=== PATIENT | male | born 1945 | race Hispanic/Latino ===

== ENCOUNTER 2020-10-05 03:11 | Inpatient (IN) | payer OTHER, MEDICARE ==
[~2020-10-05 03:11] MED LIST: HYDROmorphone 1 MG/1 ML INJ IV ONE; HYDROmorphone 1 MG/1 ML INJ ONE; ONDANSETRON 4 MG/2 ML INJ IV ONE; SODIUM CHLORIDE 0.9% 1000 ML 1,000 ML ONE
[2020-10-05] MEDS ORDERED: HYDROmorphone 1 MG/1 ML INJ IV ONE (03:52)
[2020-10-05] MEDS ORDERED: ONDANSETRON 4 MG/2 ML INJ IV ONE (03:53)
[2020-10-05] MEDS ORDERED: SODIUM CHLORIDE 0.9% 1000 ML 1,000 ML IV ONE (03:53)
[2020-10-05] MEDS ORDERED: HYDROmorphone 1 MG/1 ML INJ ONE (03:56)
--- NOTE | 2020-10-05 04:11 | Emergency Department Report ---
ED General Adult HPI - General Chief complaint: Abdominal Pain Stated complaint: Abdominal pain PUI?: No Source: patient, EMS ( EMS documentation not available at time of chart dictation ), RN notes reviewed Mode of arrival: Stretcher Limitations: Physical Limitation - History of Present Illness Initial comments: The patient is a 75-year-old gentleman. He is not known to myself previously. He denies a history of abdominal surgeries. Presents to the ER today with EMS with a complaint of nontraumatic sudden upper abdominal pain. It started after eating a chicken sandwich. The abdominal pain is subxiphoid, epigastric and the left upper quadrant. It radiates to the back. He denies headache, neck pain, chest pain, he is nauseous, he denies Covid symptomatology, he denies testicular pain and urinary symptoms. He has never had pain like this before. His pain is markedly improved with hydromorphone. -: Sudden Location: abdomen Radiation: back Quality: stabbing, aching Consistency: constant Improves with: medication Worsens with: movement - Related Data Home Medications Medication Instructions Recorded Confirmed Last Taken Abacavir 600 mg PO QDAY 10/05/20 10/05/20 10/03/20 10:00 Calcium 500-Vit D3 400 Tablet 500 mg PO QDAY 10/05/20 10/05/20 10/04/20 08:00 Cholecalciferol (Vitamin D3) 25 mcg PO QDAY 10/05/20 10/05/20 10/04/20 20:00 Cyanocobalamin [Vitamin B-12] 1,000 mcg PO DAILY 10/05/20 10/05/20 10/04/20 20:00 Diphenhydramine HCl [Complete 25 mg PO PRN 10/05/20 10/05/20 10/03/20 20:00 Allergy TAB] Dolutegravir [Tivicay] 50 mg PO QDAY 10/05/20 10/05/20 10/04/20 10:00 Dry Eye Relief Eye Drops 1 ml OS Q6HR 10/05/20 10/05/20 10/03/20 20:00 Finasteride 5 mg PO HS 10/05/20 10/05/20 10/04/20 20:00 Flomax 0.4 mg PO QDAY 10/05/20 10/05/20 10/03/20 20:00 Lamivudine 300 mg PO QDAY 10/05/20 10/05/20 10/03/20 10:00 Moxifloxacin 1 drop OU Q6HR 10/05/20 10/05/20 10/05/20 12:00 Ider-3 Fatty Acids/Fish Oil [Fish 1,000 mg PO QDAY 10/05/20 10/05/20 10/03/20 20:00 Oil] Primidone [Mysoline] 50 mg PO BID 10/05/20 10/05/20 10/03/20 20:00 Propranolol HCl [Inderal LA] 60 mg PO QDAY 10/05/20 10/05/20 10/03/20 Sertraline HCl 50 mg PO BID 10/05/20 10/05/20 10/03/20 glipiZIDE [Glucotrol] 10 mg PO HS 10/05/20 10/05/20 10/03/20 20:00 prednisoLONE ACETATE 1% 1 drop OS Q6HR 10/05/20 10/05/20 10/03/20 20:00 Allergies Allergy/AdvReac Type Severity Reaction Status Date / Time ibuprofen [From Motrin] AdvReac Unknown Verified 10/05/20 04:30 ED Review of Systems ROS: Stated complaint: Other details as noted in HPI Constitutional: malaise, weakness. denies: fever Eyes: denies: eye discharge ENT: denies: epistaxis Respiratory: denies: cough Cardiovascular: denies: chest pain Gastrointestinal: abdominal pain, nausea. denies: vomiting Genitourinary: denies: dysuria, testicular pain Musculoskeletal: back pain Neurological: weakness Psychiatric: anxiety Hematological/Lymphatic: denies: easy bleeding ED Past Medical Hx - Past Medical History Hx Diabetes: Yes Hx HIV: Yes - Surgical History Hx Pacemaker: No Additional Surgical History: cataract - Social History Smoking Status: Never Smoker Substance Use Type: None - Medications Home Medications: Home Medications Medication Instructions Recorded Confirmed Last Taken Type Abacavir 600 mg PO QDAY 10/05/20 10/05/20 10/03/20 10:00 History Calcium 500-Vit D3 400 Tablet 500 mg PO QDAY 10/05/20 10/05/20 10/04/20 08:00 History Cholecalciferol (Vitamin D3) 25 mcg PO QDAY 10/05/20 10/05/20 10/04/20 20:00 History Cyanocobalamin [Vitamin B-12] 1,000 mcg PO DAILY 10/05/20 10/05/20 10/04/20 20:00 History Diphenhydramine HCl [Complete 25 mg PO PRN 10/05/20 10/05/20 10/03/20 20:00 History Allergy TAB] Dolutegravir [Tivicay] 50 mg PO QDAY 10/05/20 10/05/20 10/04/20 10:00 History Dry Eye Relief Eye Drops 1 ml OS Q6HR 10/05/20 10/05/20 10/03/20 20:00 History Finasteride 5 mg PO HS 10/05/20 10/05/20 10/04/20 20:00 History Flomax 0.4 mg PO QDAY 10/05/20 10/05/20 10/03/20 20:00 History Lamivudine 300 mg PO QDAY 10/05/20 10/05/20 10/03/20 10:00 History Moxifloxacin 1 drop OU Q6HR 10/05/20 10/05/20 10/05/20 12:00 History Ider-3 Fatty Acids/Fish Oil [Fish 1,000 mg PO QDAY 10/05/20 10/05/20 10/03/20 20:00 History Oil] Primidone [Mysoline] 50 mg PO BID 10/05/20 10/05/20 10/03/20 20:00 History Propranolol HCl [Inderal LA] 60 mg PO QDAY 10/05/20 10/05/20 10/03/20 History Sertraline HCl 50 mg PO BID 10/05/20 10/05/20 10/03/20 History glipiZIDE [Glucotrol] 10 mg PO HS 10/05/20 10/05/20 10/03/20 20:00 History prednisoLONE ACETATE 1% 1 drop OS Q6HR 10/05/20 10/05/20 10/03/20 20:00 History ED Physical Exam - General Limitations: Physical Limitation General appearance: alert, anxious, in distress, obese - Head Head exam: Present: atraumatic, normocephalic - Eye Eye exam: Present: normal appearance, EOMI. Absent: nystagmus - ENT ENT exam: Present: normal exam, normal orophraynx, mucous membranes moist, normal external ear exam - Neck Neck exam: Present: normal inspection, full ROM. Absent: tenderness, meningismus - Respiratory Respiratory exam: Present: normal lung sounds bilaterally. Absent: respiratory distress, wheezes, rales, rhonchi, stridor, decreased breath sounds - Cardiovascular Cardiovascular Exam: Present: regular rate, normal rhythm, normal heart sounds. Absent: bradycardia, tachycardia, irregular rhythm, systolic murmur, diastolic murmur, rubs, gallop - GI/Abdominal GI/Abdominal exam: Present: soft, distended, tenderness, guarding. Absent: rebound, rigid, pulsatile mass - exam: Present: normal inspection External exam: Present: normal external exam, other (Chaperoned by nurse Ольга Schmidt) - Extremities Exam Extremities exam: Present: normal inspection, full ROM, other (2+ pulses noted in the bilateral upper and lower extremities. There is no palpable cord. negative Homans sign. Muscular compartments are soft. The pelvis is stable.). Absent: calf tenderness - Back Exam Back exam: Present: normal inspection. Absent: tenderness, CVA tenderness (R), CVA tenderness (L), paraspinal tenderness, vertebral tenderness - Neurological Exam Neurological exam: Present: alert, other (No facial droop. Tongue midline. Extraocular movements intact bilaterally. Facial sensation intact to light touch in V1, V2, V3 distribution bilaterally. 5 and a 5 strength in 4 extremities. Sensation intact to light touch in 4 extremities.) - Psychiatric Psychiatric exam: Present: anxious - Skin Skin exam: Present: warm, dry, intact, normal color. Absent: rash ED Course Vital Signs 10/05/20 10/05/20 10/05/20 03:37 04:36 04:46 Temperature 97.7 F Pulse Rate 84 60 67 Respiratory 20 16 17 Rate Blood Pressure 202/84 O2 Sat by Pulse 99 96 97 Oximetry 10/05/20 10/05/20 10/05/20 05:20 05:30 05:45 Temperature Pulse Rate 81 78 77 Respiratory 15 16 14 Rate Blood Pressure 176/73 176/73 176/73 O2 Sat by Pulse 98 95 94 Oximetry 10/05/20 10/05/20 10/05/20 06:01 06:11 06:21 Temperature Pulse Rate 82 85 83 Respiratory 13 14 15 Rate Blood Pressure 150/88 173/84 173/84 O2 Sat by Pulse 96 96 95 Oximetry - Consultations Consultation #1: 10/05/20 05:51 Discussed history, physical, pertinent laboratory studies, imaging studies and plan of care with general surgeon on-call, Dr. Rosetta Tellez. She is in agreement with the plan of care, and she will follow in consultation. Right upper quadrant ultrasound ordered. We will defer to inpatient team to follow this up. Elevated blood pressure is likely chronic. Does not appear to be acutely de compensated. He was given 5 mg of hydralazine by myself. Defer to inpatient team to further evaluate and manage. 10/06/20 00:23 ED Medical Decision Making - Lab Data Result diagrams: 10/05/20 02:06 Vital Signs 10/05/20 03:37 Temperature 97.7 F Pulse Rate 84 Respiratory 20 Rate Blood Pressure 202/84 O2 Sat by Pulse 99 Oximetry White count 8.2/hemoglobin 14.4/hematocrit 40.6/platelet count 130 Sodium 140/potassium 3.79/chloride 101.5/CO2 25/BUN 22/creatinine 1.2/glucose 23 5 Total bili 1.3, AST 112, ALT 46, lipase 3256 Lab Results 10/05/20 10/05/20 10/05/20 Range/Units 02:06 02:06 02:06 WBC 8.2 (4.5-11.0) K/mm3 RBC 4.19 (3.65-5.03) M/mm3 Hgb 14.4 (11.8-15.2) gm/dl Hct 40.6 (35.5-45.6) % MCV 97 H (84-94) fl MCH 34 H (28-32) pg MCHC 36 H (32-34) % RDW 13.3 (13.2-15.2) % Plt Count 130 L (140-440) K/mm3 Lymph % (Auto) 25.8 (13.4-35.0) % [place] % (Auto) 7.2 (0.0-7.3) % Eos % (Auto) 2.2 (0.0-4.3) % Baso % (Auto) 0.3 (0.0-1.8) % Lymph # (Auto) 2.1 (1.2-5.4) K/mm3 [place] # (Auto) 0.6 (0.0-0.8) K/mm3 Eos # (Auto) 0.2 (0.0-0.4) K/mm3 Baso # (Auto) 0.0 (0.0-0.1) K/mm3 Seg Neutrophils % 64.5 (40.0-70.0) % Seg Neutrophils # 5.3 (1.8-7.7) K/mm3 PT 14.1 (12.2-14.9) Sec. INR 1.04 (0.87-1.13) APTT 28.3 (24.2-36.6) Sec. Hemoglobin A1c (4-6) % Lactic Acid (0.7-2.0) mmol/L Total Bilirubin (0.1-1.2) mg/dL Direct Bilirubin (0-0.2) mg/dL Indirect Bilirubin mg/dL AST (5-40) units/L ALT (7-56) units/L Alkaline Phosphatase (35-129) units/L Total Protein (6.3-8.2) g/dL Albumin (3.9-5) g/dL Albumin/Globulin Ratio % Lipase (13-60) units/L Urine Color Yellow (Yellow) Urine Turbidity Clear (Clear) Urine pH 6.0 (5.0-7.0) Ur Specific [place] 1.009 (1.003-1.030) Urine Protein 30 mg/dl (Negative) mg/dL Urine Glucose (UA) 50 (Negative) mg/dL Urine Ketones Trace (Negative) mg/dL Urine Blood Small A (Negative) Urine Nitrite Negative (Negative) Urine Bilirubin Negative (Negative) Urine Urobilinogen < 2.0 (<2.0) mg/dL Ur Leukocyte Esterase Negative (Negative) Urine WBC (Auto) < 1.0 (0.0-6.0) /HPF Urine RBC (Auto) 1.0 (0.0-6.0) /HPF U Epithel Cells (Auto) < 1.0 (0-13.0) /HPF 10/05/20 10/05/20 10/05/20 Range/Units 11:58 11:58 11:58 WBC (4.5-11.0) K/mm3 RBC (3.65-5.03) M/mm3 Hgb (11.8-15.2) gm/dl Hct (35.5-45.6) % MCV (84-94) fl MCH (28-32) pg MCHC (32-34) % RDW (13.2-15.2) % Plt Count (140-440) K/mm3 Lymph % (Auto) (13.4-35.0) % [place] % (Auto) (0.0-7.3) % Eos % (Auto) (0.0-4.3) % Baso % (Auto) (0.0-1.8) % Lymph # (Auto) (1.2-5.4) K/mm3 [place] # (Auto) (0.0-0.8) K/mm3 Eos # (Auto) (0.0-0.4) K/mm3 Baso # (Auto) (0.0-0.1) K/mm3 Seg Neutrophils % (40.0-70.0) % Seg Neutrophils # (1.8-7.7) K/mm3 PT (12.2-14.9) Sec. INR (0.87-1.13) APTT (24.2-36.6) Sec. Hemoglobin A1c 6.7 H (4-6) % Lactic Acid 1.10 (0.7-2.0) mmol/L Total Bilirubin 3.10 H (0.1-1.2) mg/dL Direct Bilirubin 2.7 H (0-0.2) mg/dL Indirect Bilirubin 0.4 mg/dL AST 227 H (5-40) units/L ALT 140 H (7-56) units/L Alkaline Phosphatase 137 H (35-129) units/L Total Protein 7.3 (6.3-8.2) g/dL Albumin 4.4 (3.9-5) g/dL Albumin/Globulin Ratio 1.5 % Lipase (13-60) units/L Urine Color (Yellow) Urine Turbidity (Clear) Urine pH (5.0-7.0) Ur Specific [place] (1.003-1.030) Urine Protein (Negative) mg/dL Urine Glucose (UA) (Negative) mg/dL Urine Ketones (Negative) mg/dL Urine Blood (Negative) Urine Nitrite (Negative) Urine Bilirubin (Negative) Urine Urobilinogen (<2.0) mg/dL Ur Leukocyte Esterase (Negative) Urine WBC (Auto) (0.0-6.0) /HPF Urine RBC (Auto) (0.0-6.0) /HPF U Epithel Cells (Auto) (0-13.0) /HPF 10/05/20 Range/Units 11:58 WBC (4.5-11.0) K/mm3 RBC (3.65-5.03) M/mm3 Hgb (11.8-15.2) gm/dl Hct (35.5-45.6) % MCV (84-94) fl MCH (28-32) pg MCHC (32-34) % RDW (13.2-15.2) % Plt Count (140-440) K/mm3 Lymph % (Auto) (13.4-35.0) % [place] % (Auto) (0.0-7.3) % Eos % (Auto) (0.0-4.3) % Baso % (Auto) (0.0-1.8) % Lymph # (Auto) (1.2-5.4) K/mm3 [place] # (Auto) (0.0-0.8) K/mm3 Eos # (Auto) (0.0-0.4) K/mm3 Baso # (Auto) (0.0-0.1) K/mm3 Seg Neutrophils % (40.0-70.0) % Seg Neutrophils # (1.8-7.7) K/mm3 PT (12.2-14.9) Sec. INR (0.87-1.13) APTT (24.2-36.6) Sec. Hemoglobin A1c (4-6) % Lactic Acid (0.7-2.0) mmol/L Total Bilirubin (0.1-1.2) mg/dL Direct Bilirubin (0-0.2) mg/dL Indirect Bilirubin mg/dL AST (5-40) units/L ALT (7-56) units/L Alkaline Phosphatase (35-129) units/L Total Protein (6.3-8.2) g/dL Albumin (3.9-5) g/dL Albumin/Globulin Ratio % Lipase 2888 H (13-60) units/L Urine Color (Yellow) Urine Turbidity (Clear) Urine pH (5.0-7.0) Ur Specific [place] (1.003-1.030) Urine Protein (Negative) mg/dL Urine Glucose (UA) (Negative) mg/dL Urine Ketones (Negative) mg/dL Urine Blood (Negative) Urine Nitrite (Negative) Urine Bilirubin (Negative) Urine Urobilinogen (<2.0) mg/dL Ur Leukocyte Esterase (Negative) Urine WBC (Auto) (0.0-6.0) /HPF Urine RBC (Auto) (0.0-6.0) /HPF U Epithel Cells (Auto) (0-13.0) /HPF Vital Signs 10/05/20 10/05/20 10/05/20 03:37 04:36 04:46 Temperature 97.7 F Pulse Rate 84 60 67 Respiratory 20 16 17 Rate Blood Pressure 202/84 O2 Sat by Pulse 99 96 97 Oximetry 10/05/20 10/05/20 10/05/20 05:20 05:30 05:45 Temperature Pulse Rate 81 78 77 Respiratory 15 16 14 Rate Blood Pressure 176/73 176/73 176/73 O2 Sat by Pulse 98 95 94 Oximetry 10/05/20 10/05/20 10/05/20 06:01 06:11 06:21 Temperature Pulse Rate 82 85 83 Respiratory 13 14 15 Rate Blood Pressure 150/88 173/84 173/84 O2 Sat by Pulse 96 96 95 Oximetry - EKG Data 10/05/20 04:22 EKG interpreted at 02: 0 8 AM the EKG shows an atrial paced rate, 60 bpm, with good capture, left axis dev iation, incomplete right bundle branch block, QTC prolonged, no endorsement of chest pain, abnormal EKG, not a STEMI - Radiology Data Radiology results: report reviewed, image reviewed CHEST 1 VIEW INDICATION / CLINICAL INFORMATION: abd pain, distention, r/o free air. COMPARISON: None available. FINDINGS: SUPPORT DEVICES: None. HEART / MEDIASTINUM: No significant abnormality. LUNGS / PLEURA: No significant pulmonary or pleural abnormality. No pneumothorax. ADDITIONAL FINDINGS: No significant additional findings. IMPRESSION: 1. No acute findings. Signer Name: Celso Wilson MD Signed: 10/05/2020 1:31 AM Workstation Name: [id number] HISTORY: Patient complains of lower abdominal pain. COMPARISON: None. TECHNIQUE: CT images of the abdomen and pelvis were obtained following administration of intravenous contrast. All CT scans at this location are performed using CT dose reduction for ALARA by means of automated exposure control. CONTRAST: 100 ml of intravenous contrast administered. FINDINGS: Lungs/bones: Lung bases are clear Abdomen/pelvis: Liver, spleen, adrenal glands appear normal. There is mild inflammation of the pancreatic head and proximal body with small trace fluid. The gallbladder is distended with multiple gallstones urinary bladder appears normal. No bowel obstruction is seen. IMPRESSION: 1. Gallbladder is distended with cholelithiasis. Clinical correlation. 2. Mild inflammation surrounding the pancreatic body and head with trace fluid. Findings could represent acute pancreatitis however clinical correlation with pancreatic enzymes and history. Signer Name: Celso Wilson MD Signed: 10/05/2020 4:17 AM Workstation Name: [id number] - Medical Decision Making Differential diagnosis, including but not limited to: Pancreatitis, colitis, diverticulitis, obstruction, perforated viscus Assessment and plan: 75-year-old gentleman with diffuse abdominal pain after eating heavy and spicy food, lipase of 3200, history and physical suggestive at this time of pancreatitis. He feels improved after hydromorphone. CT scan of the abdomen pelvis is pending at this time. Hospital physician, Dr. Erica Faulkner to admit for acute pancreatitis Critical care attestation.: If time is entered above; I have spent that time in minutes in the direct care of this critically ill patient, excluding procedure time. ED Disposition Clinical Impression: Acute pancreatitis, Acute abdominal pain, Cholelithiasis Disposition: OP ADMIT IP TO THIS HOSP Is pt being admited?: Yes Does the pt Need Aspirin: No Condition: Serious
--- NOTE | 2020-10-05 05:10 | History and Physical Report ---
History of Present Illness Date of examination: 10/05/20 Date of admission: 10/05/20 Chief complaint: abdominal pain History of present illness: The patient is a 75-year-old gentleman. He is not known to myself previously. He denies a history of abdominal surgeries. Presents to the ER today with EMS with a complaint of nontraumatic sudden upper abdominal pain. It started after eating a chicken sandwich. The abdominal pain is subxiphoid, epigastric and the left upper quadrant. It radiates to the back. He denies headache, neck pain, chest pain, he is nauseous, he denies Covid symptomatology, he denies testicular pain and urinary symptoms. He has never had pain like this before. His pain is markedly improved with hydromorphone. ED work-up sodium 140 potassium 3.9 creatinine 1.3 lipase 3256, troponin [address] of the abdomen done with follow-up with results. Patient seen in the ED at bedside patient alert oriented x3. Patient reported abdominal pain bilateral upper quadrant pain that radiates to the lower right and left abdomen. Pain level at time of assessment 7to-8/10. Reviewed lab values and vital signs. Lipase is elevated.. Past History Past Medical History: diabetes, HIV/AIDS, hyperlipidemia Past Surgical History: Other (Hip surgery) Social history: lives with family Family history: no significant family history Medications and Allergies Allergies Allergy/AdvReac Type Severity Reaction Status Date / Time ibuprofen [From Motrin] AdvReac Unknown Verified 10/05/20 04:30 Review of Systems Ears, nose, mouth and throat: no epistaxis Gastrointestinal: abdominal pain, heartburn, indigestion Musculoskeletal: no neck stiffness Integumentary: no rash, no pruritis Neurological: no seizures Psychiatric: no suicidal ideation Hematologic/Lymphatic: no easy bruising, no easy bleeding Exam - Constitutional Vitals: Temp Pulse Resp BP Pulse Ox 97.7 F 84 20 202/84 99 10/05/20 03:37 10/05/20 03:37 10/05/20 03:37 10/05/20 03:37 10/05/20 03:37 General appearance: Present: mild distress, well-nourished - EENT Eyes: Present: PERRL ENT: hearing intact, clear oral mucosa - Neck Neck: Present: supple, normal ROM - Respiratory Respiratory effort: normal Respiratory: bilateral: CTA - Cardiovascular Heart rate: 84 Heart Sounds: Present: S1 & S2. Absent: rub, click - Extremities Extremities: pulses symmetrical, No edema Peripheral Pulses: within normal limits - Abdominal General gastrointestinal: Present: soft, non-tender, non-distended, normal bowel sounds Male genitourinary: Present: normal - Integumentary Integumentary: Present: clear, warm, dry - Musculoskeletal Musculoskeletal: gait normal, strength equal bilaterally - Psychiatric Psychiatric: appropriate mood/affect, intact judgment & insight - Neurologic Neurologic: CNII-XII intact, moves all extremities - Allied Health Allied health notes reviewed: nursing Assessment and Plan - Patient Problems (1) Acute pancreatitis Current Visit: Yes Status: Acute Plan to address problem: CMP done shows elevated lipase 3256. Continue IV hydration, pain management GI consulted (2) Acute abdominal pain Current Visit: Yes Status: Acute Plan to address problem: Secondary to acute pancreatitis Pain management CT of the abdomen/pelvis (3) History of HIV infection Current Visit: Yes Status: Acute Plan to address problem: will resume antiviral Discussed the significant of medication compliance (4) DVT prophylaxis Current Visit: Yes Status: Acute Plan to address problem: Subcutaneous Lovenox
[2020-10-05] MEDS ORDERED: MAGNESIUM HYDROXIDE (MOM) ORAL LIQD UDC PO PRN (05:13)
[2020-10-05] MEDS ORDERED: METOCLOPRAMIDE 10 MG/2 ML INJ IV PRN (05:13)
[2020-10-05] MEDS ORDERED: ALUM-MAG HYDROXIDE-SIMETHICONE 200-200-20MG/5ML ORAL LIQD 30 ML PO PRN (05:13)
[2020-10-05] MEDS ORDERED: traMADol 50 MG TAB PO PRN (05:16)
[2020-10-05] MEDS ORDERED: MORPHINE 10 MG/1 ML INJ IV PRN (05:16)
--- NOTE | 2020-10-05 05:21 | Cat Scan Report ---
CT ABDOMEN AND PELVIS WITH CONTRAST HISTORY: Patient complains of lower abdominal pain. COMPARISON: None. TECHNIQUE: CT images of the abdomen and pelvis were obtained following administration of intravenous contrast. All CT scans at this location are performed using CT dose reduction for ALARA by means of automated exposure control. CONTRAST: 100 ml of intravenous contrast administered. FINDINGS: Lungs/bones: Lung bases are clear Abdomen/pelvis: Liver, spleen, adrenal glands appear normal. There is mild inflammation of the pancr eatic head and proximal body with small trace fluid. The gallbladder is distended with multiple galls tones urinary bladder appears normal. No bowel obstruction is seen. IMPRESSION: 1. Gallbladder is distended with cholelithiasis. Clinical correlation. 2. Mild inflammation surrounding the pancreatic body and head with trace fluid. Findings could repres ent acute pancreatitis however clinical correlation with pancreatic enzymes and history. Signer Name: Celso Wilson MD Signed: 10/05/2020 5:17 AM Workstation Name: [id number]
[2020-10-05] MEDS ORDERED: MORPHINE 2 MG/1 ML INJ ONE (05:25)
[2020-10-05] MEDS ORDERED: ERTAPENEM 1 GM in SODIUM CHLORIDE 0.9% 50 ML IV ONE (05:35)
[2020-10-05] MEDS ORDERED: hydrALAZINE 20 MG/1 ML INJ ONE (05:46)
--- NOTE | 2020-10-05 08:52 | Progress Note ---
Assessment and Plan Assessment and plan: Acute pancreatitis Abdominal pain History of HIV 10/05/2020. On admission, lipase noted to be 3256. Continue IV fluid hydration, pain management and GI consultation pending. CT scan reveals distended gallbladder with cholelithiasis. Mild inflammation surrounding the pancreatic body and head with trace fluid. Await surgery evaluation for gallstone pancreatitis. History Interval history: No new issues overnight Hospitalist Physical - Constitutional Vitals: Temp Pulse Resp BP Pulse Ox 97.7 F 82 13 150/88 96 10/05/20 03:37 10/05/20 06:01 10/05/20 06:01 10/05/20 06:01 10/05/20 06:01 General appearance: Present: no acute distress, well-nourished - EENT Eyes: Present: PERRL, EOM intact ENT: hearing intact, clear oral mucosa, dentition normal - Neck Neck: Present: supple, normal ROM - Respiratory Respiratory effort: normal Respiratory: bilateral: CTA - Cardiovascular Rhythm: regular Heart Sounds: Present: S1 & S2. Absent: gallop, rub - Extremities Extremities: no ischemia, No edema, Full ROM - Abdominal General gastrointestinal: soft, non-tender, non-distended, normal bowel sounds - Integumentary Integumentary: Present: clear, warm, dry - Neurologic Neurologic: CNII-XII intact, moves all extremities Active Medications - Current Medications Current Medications: Generic Name Dose Route Start Last Admin Trade Name Freq PRN Reason Stop Dose Admin Acetaminophen 650 mg 10/05/20 05:13 Acetaminophen 325 Mg Tab PO Q4H PRN Pain MILD(1-3)/Fever >100.5/PEÑA Al Hydrox/Mg Hydrox/Simethicone 30 ml 10/05/20 05:13 Alum-Mag Hydroxide-Simethicone [phone]/5ml Oral Liqd 30 Ml PO Q4H PRN Indigestion Enoxaparin Sodium 40 mg 10/05/20 10:00 Enoxaparin 40 Mg/0.4 Ml Inj SUB-Q QDAY@1000 ISIS Protocol Hydralazine HCl 10 mg 10/05/20 05:42 Hydralazine 20 Mg/1 Ml Inj IV Q4H PRN Hypertension Dextrose/Sodium Chloride 1,000 mls @ 75 mls/hr 10/05/20 06:00 D5ns IV DIRECT ISIS Magnesium Hydroxide 30 ml 10/05/20 05:13 Magnesium Hydroxide (Mom) Oral Liqd Udc PO Q4H PRN Constipation Metoclopramide HCl 10 mg 10/05/20 05:13 Metoclopramide 10 Mg/2 Ml Inj IV Q6H PRN Nausea And Vomiting Morphine Sulfate 2 mg 10/05/20 08:00 Morphine 2 Mg/1 Ml Inj IV Q4H PRN Pain , Severe (7-10) Ondansetron HCl 4 mg 10/05/20 05:13 Ondansetron 4 Mg/2 Ml Inj IV Q8H PRN Nausea And Vomiting Sodium Chloride 10 ml 10/05/20 05:13 Sodium Chloride 0.9% 10 Ml Flush Syringe IV PRN PRN LINE FLUSH Tramadol HCl 50 mg 10/05/20 05:16 Tramadol 50 Mg Tab PO Q6H PRN Pain, Moderate (4-6) Trazodone HCl 50 mg 10/05/20 22:00 Trazodone 50 Mg Tab PO QHS PRN Insomnia
--- NOTE | 2020-10-05 08:55 | Ultrasound Report ---
ULTRASOUND ABDOMEN, LIMITED (RIGHT UPPER QUADRANT) INDICATION: Distended gallbladder, pancreatitis. COMPARISON: None available. FINDINGS: Pancreas: Not well visualized. Liver: Liver is heterogeneous in echotexture. No focal hepatic lesions are seen. The liver size is no rmal. Gallbladder: Gallbladder is distended and filled with sludge. There is slight thickening of the gallb ladder wall which measures 4 mm. Gallstones seen on CT scan is not identified on this ultrasound exam . Bile ducts: Common bile duct is slightly dilated Common Bile Duct measures 7 mm. Free fluid: None. Additional Findings: None. IMPRESSION: 1. Gallbladder is distended and sludge-filled. The gallbladder wall is slightly thickened. The appear ance raises concern for cholecystitis but is not definitive. There is a small gallstone noted on the patient's CT scan which is not visualized on this ultrasound exam. There is slight dilatation of the common bile duct. Signer Name: Puneet Gallegos MD Signed: 10/05/2020 8:50 AM Workstation Name: [id number]
--- NOTE | 2020-10-05 09:27 | XRay Report ---
CHEST 1 VIEW INDICATION / CLINICAL INFORMATION: abd pain, distention, r/o free air. COMPARISON: None available. FINDINGS: SUPPORT DEVICES: None. HEART / MEDIASTINUM: No significant abnormality. LUNGS / PLEURA: No significant pulmonary or pleural abnormality. No pneumothorax. ADDITIONAL FINDINGS: No significant additional findings. IMPRESSION: 1. No acute findings. Signer Name: Celso Wilson MD Signed: 10/05/2020 2:31 AM Workstation Name: [id number]
[2020-10-05] MEDS: ONDANSETRON 4 MG/2 ML INJ IV PRN (09:32)
[2020-10-05] MEDS: ENOXAPARIN 40 MG/0.4 ML INJ SUB-Q SCH (09:32)
[2020-10-05] MEDS: D5W/0.9% NACL 1,000 ML IV SCH ×2 (09:32→16:13)
[2020-10-05 11:32] LABS: Color,Urine Yellow (Yellow)
[2020-10-05 11:33] LABS: Bilirubin,Urine Negative (Negative); Blood,Urine Small (Negative)
[2020-10-05 11:34] LABS: Urobilinogen,Urine < 2.0 mg/dL (<2.0); WBC,Urine < 1.0 /HPF (0.0-6.0)
[2020-10-05 11:35] LABS: Hematocrit 40.6 % (35.5-45.6); Hemoglobin 14.4 gm/dl (11.8-15.2); Mean Corpuscular HGB Conc 36 % (32-34); Mean Corpuscular Volume 97 fl (84-94); Platelet Count 130 K/mm3 (140-440); Red Blood Count 4.19 M/mm3 (3.65-5.03); Red Cell Distribution Width 13.3 % (13.2-15.2)
[2020-10-05 11:36] LABS: Basophils % (Auto) 0.3 % (0.0-1.8); Eosinophils # (Auto) 0.2 K/mm3 (0.0-0.4); Eosinophils % (Auto) 2.2 % (0.0-4.3); Lymphocytes # (Auto) 2.1 K/mm3 (1.2-5.4); Lymphocytes % (Auto) 25.8 % (13.4-35.0); Monocytes # (Auto) 0.6 K/mm3 (0.0-0.8); Monocytes % (Auto) 7.2 % (0.0-7.3)
[2020-10-05 11:38] LABS: INR 1.04 (0.87-1.13); Partial Thromboplastin Time 28.3 Sec. (24.2-36.6)
--- NOTE | 2020-10-05 11:49 | Gastroenterology Consultation ---
History of Present Illness - Reason for Consult Consult date: 10/05/20 pancreatitis Requesting physician: ROSEMARIE JEROME - History of Present Illness This is a 75 yo male admitted overnight for abdominal pain x 1 day. Reports having new onset epigastric pain radiating to the sides associated with nausea/vomiting and chills yesterday. No recent weight loss or diarrhea. Reports feeling constipated. This morning, his abdominal pain has improved. No alcohol use. He thinks he has had colonoscopy many years ago with polyp removed. Per chart review, ED work-up sodium 140 potassium 3.9 creatinine 1.3 lipase 3256, troponin 0 0.010. but these labs are not available in the EMR. Medication list reviewed. Past History Past Medical History: diabetes, HIV/AIDS, hyperlipidemia Past Surgical History: Other (Hip surgery) Social history: lives with family Family history: no significant family history Medications and Allergies Allergies Allergy/AdvReac Type Severity Reaction Status Date / Time ibuprofen [From Motrin] AdvReac Unknown Verified 10/05/20 04:30 Active Meds: Active Medications Acetaminophen (Acetaminophen 325 Mg Tab) 650 mg PO Q4H PRN PRN Reason: Pain MILD(1-3)/Fever >100.5/PEÑA Al Hydrox/Mg Hydrox/Simethicone (Alum-Mag Hydroxide-Simethicone [id number]/5ml Oral Liqd 30 Ml) 30 ml PO Q4H PRN PRN Reason: Indigestion Enoxaparin Sodium (Enoxaparin 40 Mg/0.4 Ml Inj) 40 mg SUB-Q QDAY@1000 ISIS; Protocol Last Admin: 10/05/20 09:32 Dose: 40 mg Documented by: Hydralazine HCl (Hydralazine 20 Mg/1 Ml Inj) 10 mg IV Q4H PRN PRN Reason: Hypertension Dextrose/Sodium Chloride (D5ns) 1,000 mls @ 150 mls/hr IV DIRECT ISIS Last Admin: 10/05/20 09:32 Dose: 150 mls/hr Documented by: Magnesium Hydroxide (Magnesium Hydroxide (Mom) Oral Liqd Udc) 30 ml PO Q4H PRN PRN Reason: Constipation Metoclopramide HCl (Metoclopramide 10 Mg/2 Ml Inj) 10 mg IV Q6H PRN PRN Reason: Nausea And Vomiting Morphine Sulfate (Morphine 2 Mg/1 Ml Inj) 2 mg IV Q4H PRN PRN Reason: Pain , Severe (7-10) Ondansetron HCl (Ondansetron 4 Mg/2 Ml Inj) 4 mg IV Q8H PRN PRN Reason: Nausea And Vomiting Last Admin: 10/05/20 09:32 Dose: 4 mg Documented by: Sodium Chloride (Sodium Chloride 0.9% 10 Ml Flush Syringe) 10 ml IV PRN PRN PRN Reason: LINE FLUSH Tramadol HCl (Tramadol 50 Mg Tab) 50 mg PO Q6H PRN PRN Reason: Pain, Moderate (4-6) Trazodone HCl (Trazodone 50 Mg Tab) 50 mg PO QHS PRN PRN Reason: Insomnia Review of Systems - Review of Systems All systems: negative Constitutional: fever, chills, no weight loss, no weight gain Ears, Nose, Throat: no decreased hearing Cardiovascular: no chest pain Gastrointestinal: abdominal pain, nausea, vomiting, constipation, no diarrhea, no hematemesis, no coffee ground emesis, no BRBPR, no melena, no hematochezia Neurological: weakness Psychiatric: no anxiety Hematologic/Lymphatic: no easy bruising Allergic/Immunologic: no wheezing Exam - Constitutional Vital Signs: Temp Pulse Resp BP Pulse Ox 97.7 F 82 13 150/88 96 10/05/20 03:37 10/05/20 06:01 10/05/20 06:01 10/05/20 06:01 10/05/20 06:01 General appearance: no acute distress - EENT Eyes: EOM intact ENT: hearing intact - Respiratory Respiratory effort: normal - Cardiovascular Rhythm: regular Heart Sounds: Present: S1 & S2 - Gastrointestinal General gastrointestinal: Present: soft, tender, non-distended - Integumentary Integumentary: Present: clear, warm. Absent: jaundice - Neurologic Neurological: alert and oriented x3 - Labs CBC & Chem 7: 10/05/20 02:06 Lab Results: Laboratory Results - last 24 hr 10/05/20 10/05/20 10/05/20 02:06 02:06 02:06 WBC 8.2 RBC 4.19 Hgb 14.4 Hct 40.6 MCV 97 H MCH 34 H MCHC 36 H RDW 13.3 Plt Count 130 L Lymph % (Auto) 25.8 [place] % (Auto) 7.2 Eos % (Auto) 2.2 Baso % (Auto) 0.3 Lymph # (Auto) 2.1 [place] # (Auto) 0.6 Eos # (Auto) 0.2 Baso # (Auto) 0.0 Seg Neutrophils % 64.5 Seg Neutrophils # 5.3 PT 14.1 INR 1.04 APTT 28.3 Urine Color Yellow Urine Turbidity Clear Urine pH 6.0 Ur Specific [place] 1.009 Urine Protein 30 mg/dl Urine Glucose (UA) 50 Urine Ketones Trace Urine Blood Small A Urine Nitrite Negative Urine Bilirubin Negative Urine Urobilinogen < 2.0 Ur Leukocyte Esterase Negative Urine WBC (Auto) < 1.0 Urine RBC (Auto) 1.0 U Epithel Cells (Auto) < 1.0 Assessment and Plan # Gallstone pancreatitis - epigastric pain x 1 day - Ct showing cholelithiasis and pancreatitis - US showing mild prominent bile duct - labs not available at this time. LFT pending. Rec - medical management for pancreatitis with IVF and pain control - NPO - will follow up on LFTs to evaluate for any concern for common bile duct stones. May need MRCP if elevated LFTs - will follow - surgery consulted - Patient Problems (1) Acute pancreatitis Current Visit: Yes Status: Acute
--- NOTE | 2020-10-05 13:17 | Consultation ---
History of Present Illness Consult date: 10/05/20 Reason for consult: abdominal pain Chief complaint: Abdominal pain - History of present illness History of present illness: 75-year-old male with a past medical history of sick sinus syndrome with pacemak er who presented to the emergency room with severe sharp epigastric abdominal pain. He has never experienced pain like this in the past. He states the pain started suddenly after eating a chicken salad sandwich and then gradually got worse. The pain then radiated down to the rest of his abdomen. The only thing that helped the pain was 2 doses of pain medication in the emergency room. The patient states he experienced nausea and vomiting. No fevers or chills. He has been having bowel movements and passing flatus. He initially thought he had food poisoning however the pain became too severe to bear. Past History Past Medical History: diabetes, HIV/AIDS, hyperlipidemia, other (Sick sinus syndrome) Past Surgical History: Other (Hip surgery, pacemaker) Social history: lives with family Family history: no significant family history Medications and Allergies Allergies Allergy/AdvReac Type Severity Reaction Status Date / Time ibuprofen [From Motrin] AdvReac Unknown Verified 10/05/20 04:30 Home Medications Medication Instructions Recorded Confirmed Last Taken Type Abacavir 600 mg PO QDAY 10/05/20 10/05/20 10/03/20 10:00 History Calcium 500-Vit D3 400 Tablet 500 mg PO QDAY 10/05/20 10/05/20 10/04/20 08:00 History Cholecalciferol (Vitamin D3) 25 mcg PO QDAY 10/05/20 10/05/20 10/04/20 20:00 History Cyanocobalamin [Vitamin B-12] 1,000 mcg PO DAILY 10/05/20 10/05/20 10/04/20 20:00 History Diphenhydramine HCl [Complete 25 mg PO PRN 10/05/20 10/05/20 10/03/20 20:00 History Allergy TAB] Dolutegravir [Tivicay] 50 mg PO QDAY 10/05/20 10/05/20 10/04/20 10:00 History Dry Eye Relief Eye Drops 1 ml OS Q6HR 10/05/20 10/05/20 10/03/20 20:00 History Finasteride 5 mg PO HS 10/05/20 10/05/20 10/04/20 20:00 History Flomax 0.4 mg PO QDAY 10/05/20 10/05/20 10/03/20 20:00 History Lamivudine 300 mg PO QDAY 10/05/20 10/05/20 10/03/20 10:00 History Moxifloxacin 1 drop OU Q6HR 10/05/20 10/05/20 10/05/20 12:00 History [place]-3 Fatty Acids/Fish Oil [Fish 1,000 mg PO QDAY 10/05/20 10/05/20 10/03/20 20:00 History Oil] Primidone [Mysoline] 50 mg PO BID 10/05/20 10/05/20 10/03/20 20:00 History Propranolol HCl [Inderal LA] 60 mg PO QDAY 10/05/20 10/05/20 10/03/20 History Sertraline HCl 50 mg PO BID 10/05/20 10/05/20 10/03/20 History glipiZIDE [Glucotrol] 10 mg PO HS 10/05/20 10/05/20 10/03/20 20:00 History prednisoLONE ACETATE 1% 1 drop OS Q6HR 10/05/20 10/05/20 10/03/20 20:00 History Active Meds: Active Medications Acetaminophen (Acetaminophen 325 Mg Tab) 650 mg PO Q4H PRN PRN Reason: Pain MILD(1-3)/Fever >100.5/PEÑA Al Hydrox/Mg Hydrox/Simethicone (Alum-Mag Hydroxide-Simethicone [id number]/5ml Oral Liqd 30 Ml) 30 ml PO Q4H PRN PRN Reason: Indigestion Enoxaparin Sodium (Enoxaparin 40 Mg/0.4 Ml Inj) 40 mg SUB-Q QDAY@1000 ISIS; Protocol Last Admin: 10/05/20 09:32 Dose: 40 mg Documented by: Hydralazine HCl (Hydralazine 20 Mg/1 Ml Inj) 10 mg IV Q4H PRN PRN Reason: Hypertension Dextrose/Sodium Chloride (D5ns) 1,000 mls @ 150 mls/hr IV DIRECT ISIS Last Admin: 10/05/20 09:32 Dose: 150 mls/hr Documented by: Magnesium Hydroxide (Magnesium Hydroxide (Mom) Oral Liqd Udc) 30 ml PO Q4H PRN PRN Reason: Constipation Metoclopramide HCl (Metoclopramide 10 Mg/2 Ml Inj) 10 mg IV Q6H PRN PRN Reason: Nausea And Vomiting Morphine Sulfate (Morphine 2 Mg/1 Ml Inj) 2 mg IV Q4H PRN PRN Reason: Pain , Severe (7-10) Ondansetron HCl (Ondansetron 4 Mg/2 Ml Inj) 4 mg IV Q8H PRN PRN Reason: Nausea And Vomiting Last Admin: 10/05/20 09:32 Dose: 4 mg Documented by: Sodium Chloride (Sodium Chloride 0.9% 10 Ml Flush Syringe) 10 ml IV PRN PRN PRN Reason: LINE FLUSH Tramadol HCl (Tramadol 50 Mg Tab) 50 mg PO Q6H PRN PRN Reason: Pain, Moderate (4-6) Trazodone HCl (Trazodone 50 Mg Tab) 50 mg PO QHS PRN PRN Reason: Insomnia Review of Systems All systems: negative (10 point ROS performed and negative except for that listed in HPI) Exam Vital Signs Temp Pulse Resp BP Pulse Ox 97.7 F 84 20 202/84 99 10/05/20 03:37 10/05/20 03:37 10/05/20 03:37 10/05/20 03:37 10/05/20 03:37 Narrative exam: Gen.: Awake, alert, oriented x3. No apparent distress ENT: Trachea midline. No lymphadenopathy. No scleral icterus or conjunctival pallor CV: S1, S2 present. Left-sided pacemaker Respiratory: No audible wheezes Abdomen: Soft, mildly distended, epigastric and right-sided tenderness to palpation. No rebound, rigidity, guarding Extremities: No clubbing, cyanosis, edema Results - Labs 10/05/20 02:06 Abnormal lab results 10/05/20 10/05/20 Range/Units 02:06 02:06 MCV 97 H (84-94) fl MCH 34 H (28-32) pg MCHC 36 H (32-34) % Plt Count 130 L (140-440) K/mm3 Urine Blood Small A (Negative) - Imaging CT scan - abdomen: report reviewed, image reviewed CT scan - pelvis: report reviewed, image reviewed US - abdomen: report reviewed, image reviewed Assessment and Plan 75 yo M with gallstone pancreatitis Plan: 1. NPO 2. IVF 3. prn pain and nausea control 4. DVT and GI ppx 5. GI consulted 6. daily CMP and lipase 7. MRCP if LFTs trending up 8. Cards consult for preop risk assessment 9. Recommend cholecystectomy this admission. I described the pathophysiology of gallstone pancreatitis to the patient along with indication for cholecystectomy. He understands. Will proceed to the OR when cardiology evaluation is complete and lipase trends down to an acceptable level. Thank you for this consultation. Please call with any questions or concerns. Evaluation and treatment of this patient was during the time of the national and state emergency arising from COVID19 coronavirus pandemic. Treatment and procedures performed meet the current and available best practice and guidelines for patient during the COVID pandemic.
[2020-10-05 14:06] LABS: Albumin 4.4 g/dL (3.9-5); Bilirubin,Direct 2.7 mg/dL (0-0.2)
[2020-10-05] MEDS: MORPHINE 2 MG/1 ML INJ IV PRN (16:12)
[2020-10-05] MEDS ORDERED: traZODone 50 MG TAB PO PRN (22:00)
[2020-10-06] MEDS: D5W/0.9% NACL 1,000 ML IV SCH ×2 (01:24→08:44)
[2020-10-06] MEDS: MORPHINE 2 MG/1 ML INJ IV PRN ×2 (01:40→10:11)
[2020-10-06 05:13] LABS: Basophils % (Auto) 0.3 % (0.0-1.8); Eosinophils # (Auto) 0.1 K/mm3 (0.0-0.4); Eosinophils % (Auto) 0.7 % (0.0-4.3); Hematocrit 36.5 % (35.5-45.6); Hemoglobin 12.8 gm/dl (11.8-15.2); Lymphocytes # (Auto) 1.5 K/mm3 (1.2-5.4); Lymphocytes % (Auto) 21.3 % (13.4-35.0); Mean Corpuscular HGB Conc 35 % (32-34); Mean Corpuscular Volume 98 fl (84-94); Monocytes # (Auto) 0.5 K/mm3 (0.0-0.8); Monocytes % (Auto) 6.8 % (0.0-7.3); Platelet Count 115 K/mm3 (140-440); Red Blood Count 3.73 M/mm3 (3.65-5.03); Red Cell Distribution Width 13.8 % (13.2-15.2)
[2020-10-06 05:28] LABS: Alanine Aminotransferase 237 units/L (7-56); Albumin 3.3 g/dL (3.9-5); BUN/Creatinine Ratio 11; Bilirubin,Direct 4.1 mg/dL (0-0.2); Blood Urea Nitrogen 12 mg/dL (9-20); Calcium 7.7 mg/dL (8.4-10.2); Hemolysis Index 7
--- NOTE | 2020-10-06 08:19 | Progress Note ---
Assessment and Plan Assessment and plan: Acute pancreatitis Abdominal pain Sick sinus syndrome s/p pacemaker placement History of HIV 10/05/2020. On admission, lipase noted to be 3256. Continue IV fluid hydration, pain management and GI consultation pending. CT scan reveals distended gallbladder with cholelithiasis. Mild inflammation surrounding the pancreatic body and head with trace fluid. Await surgery evaluation for gallstone smalls creatitis. 10/06/2020. Continue n.p.o. status per surgery recommendations. Lipase improved to 998. LFTs slightly more elevated. Await GI evaluation. Consider MRCP. Cholecystectomy per surgery recommendations. Cardiology preop risk assessment. History Interval history: No new issues overnight Hospitalist Physical - Constitutional Vitals: Temp Pulse Resp BP Pulse Ox 98.9 F 69 20 145/62 95 10/06/20 07:15 10/06/20 07:15 10/06/20 07:15 10/06/20 07:15 10/06/20 07:15 General appearance: Present: no acute distress, well-nourished - EENT Eyes: Present: PERRL, EOM intact ENT: hearing intact, clear oral mucosa, dentition normal - Neck Neck: Present: supple, normal ROM - Respiratory Respiratory effort: normal Respiratory: bilateral: CTA - Cardiovascular Rhythm: regular Heart Sounds: Present: S1 & S2. Absent: gallop, rub - Extremities Extremities: no ischemia, No edema, Full ROM - Abdominal General gastrointestinal: soft, non-tender, non-distended, normal bowel sounds - Integumentary Integumentary: Present: clear, warm, dry - Neurologic Neurologic: CNII-XII intact, moves all extremities Results - Labs CBC & Chem 7: 10/06/20 04:23 10/06/20 04:23 Labs: Laboratory Last Values WBC 7.2 K/mm3 (4.5-11.0) 10/06/20 04:23 RBC 3.73 M/mm3 (3.65-5.03) 10/06/20 04:23 Hgb 12.8 gm/dl (11.8-15.2) 10/06/20 04:23 Hct 36.5 % (35.5-45.6) 10/06/20 04:23 MCV 98 fl (84-94) H 10/06/20 04:23 MCH 34 pg (28-32) H 10/06/20 04:23 MCHC 35 % (32-34) H 10/06/20 04:23 RDW 13.8 % (13.2-15.2) 10/06/20 04:23 Plt Count 115 K/mm3 (140-440) L 10/06/20 04:23 Lymph % (Auto) 21.3 % (13.4-35.0) 10/06/20 04:23 [place] % (Auto) 6.8 % (0.0-7.3) 10/06/20 04:23 Eos % (Auto) 0.7 % (0.0-4.3) 10/06/20 04:23 Baso % (Auto) 0.3 % (0.0-1.8) 10/06/20 04:23 Lymph # (Auto) 1.5 K/mm3 (1.2-5.4) 10/06/20 04:23 [place] # (Auto) 0.5 K/mm3 (0.0-0.8) 10/06/20 04:23 Eos # (Auto) 0.1 K/mm3 (0.0-0.4) 10/06/20 04:23 Baso # (Auto) 0.0 K/mm3 (0.0-0.1) 10/06/20 04:23 Seg Neutrophils % 70.9 % (40.0-70.0) H 10/06/20 04:23 Seg Neutrophils # 5.1 K/mm3 (1.8-7.7) 10/06/20 04:23 PT 14.1 Sec. (12.2-14.9) 10/05/20 02:06 INR 1.04 (0.87-1.13) 10/05/20 02:06 APTT 28.3 Sec. (24.2-36.6) 10/05/20 02:06 Sodium 142 mmol/L (137-145) 10/06/20 04:23 Potassium 3.6 mmol/L (3.6-5.0) 10/06/20 04:23 Chloride 107.3 mmol/L (98-107) H 10/06/20 04:23 Carbon Dioxide 26 mmol/L (22-30) 10/06/20 04:23 Anion Gap 12 mmol/L 10/06/20 04:23 BUN 12 mg/dL (9-20) 10/06/20 04:23 Creatinine 1.1 mg/dL (0.8-1.3) 10/06/20 04:23 Estimated GFR > 60 ml/min 10/06/20 04:23 BUN/Creatinine Ratio 11 % 10/06/20 04:23 Glucose 235 mg/dL (75-100) H 10/06/20 04:23 POC Glucose 283 mg/dL (70-105) H 10/06/20 07:16 Hemoglobin A1c 6.7 % (4-6) H 10/05/20 11:58 Lactic Acid 1.10 mmol/L (0.7-2.0) 10/05/20 11:58 Calcium 7.7 mg/dL (8.4-10.2) L 10/06/20 04:23 Total Bilirubin 4.40 mg/dL (0.1-1.2) H 10/06/20 04:23 Direct Bilirubin 4.1 mg/dL (0-0.2) H 10/06/20 04:23 Indirect Bilirubin 0.4 mg/dL 10/05/20 11:58 AST 245 units/L (5-40) H 10/06/20 04:23 ALT 237 units/L (7-56) H 10/06/20 04:23 Alkaline Phosphatase 135 units/L (35-129) H 10/06/20 04:23 Total Protein 5.9 g/dL (6.3-8.2) L 10/06/20 04:23 Albumin 3.3 g/dL (3.9-5) L 10/06/20 04:23 Albumin/Globulin Ratio 1.3 % 10/06/20 04:23 Lipase 998 units/L (13-60) H 10/06/20 04:23 Urine Color Yellow (Yellow) 10/05/20 02:06 Urine Turbidity Clear (Clear) 10/05/20 02:06 Urine pH 6.0 (5.0-7.0) 10/05/20 02:06 Ur Specific [place] 1.009 (1.003-1.030) 10/05/20 02:06 Urine Protein 30 mg/dl mg/dL (Negative) 10/05/20 02:06 Urine Glucose (UA) 50 mg/dL (Negative) 10/05/20 02:06 Urine Ketones Trace mg/dL (Negative) 10/05/20 02:06 Urine Blood Small (Negative) A 10/05/20 02:06 Urine Nitrite Negative (Negative) 10/05/20 02:06 Urine Bilirubin Negative (Negative) 10/05/20 02:06 Urine Urobilinogen < 2.0 mg/dL (<2.0) 10/05/20 02:06 Ur Leukocyte Esterase Negative (Negative) 10/05/20 02:06 Urine WBC (Auto) < 1.0 /HPF (0.0-6.0) 10/05/20 02:06 Urine RBC (Auto) 1.0 /HPF (0.0-6.0) 10/05/20 02:06 U Epithel Cells (Auto) < 1.0 /HPF (0-13.0) 10/05/20 02:06 Microbiology: Microbiology 10/05/20 11:58 Peripheral/Venous Blood Culture - Preliminary Culture in Progress [place]/IV: Voiding Method Urinal Active Medications - Current Medications Current Medications: Generic Name Dose Route Start Last Admin Trade Name Freq PRN Reason Stop Dose Admin Acetaminophen 650 mg 10/05/20 05:13 Acetaminophen 325 Mg Tab PO Q4H PRN Pain MILD(1-3)/Fever >100.5/PEÑA Al Hydrox/Mg Hydrox/Simethicone 30 ml 10/05/20 05:13 Alum-Mag Hydroxide-Simethicone [id number]/5ml Oral Liqd 30 Ml PO Q4H PRN Indigestion Enoxaparin Sodium 40 mg 10/05/20 10:00 10/05/20 09:32 Enoxaparin 40 Mg/0.4 Ml Inj SUB-Q 40 mg QDAY@1000 ISIS Administration Protocol Hydralazine HCl 10 mg 10/05/20 05:42 Hydralazine 20 Mg/1 Ml Inj IV Q4H PRN Hypertension Dextrose/Sodium Chloride 1,000 mls @ 150 mls/hr 10/05/20 06:00 10/06/20 01:24 D5ns IV 150 mls/hr DIRECT ISIS Administration Magnesium Hydroxide 30 ml 10/05/20 05:13 Magnesium Hydroxide (Mom) Oral Liqd Udc PO Q4H PRN Constipation Metoclopramide HCl 10 mg 10/05/20 05:13 10/05/20 16:12 Metoclopramide 10 Mg/2 Ml Inj IV 10 mg Q6H PRN Administration Nausea And Vomiting Morphine Sulfate 2 mg 10/05/20 08:00 10/06/20 01:40 Morphine 2 Mg/1 Ml Inj IV 2 mg Q4H PRN Administration Pain , Severe (7-10) Ondansetron HCl 4 mg 10/05/20 05:13 10/05/20 09:32 Ondansetron 4 Mg/2 Ml Inj IV 4 mg Q8H PRN Administration Nausea And Vomiting Sodium Chloride 10 ml 10/05/20 05:13 Sodium Chloride 0.9% 10 Ml Flush Syringe IV PRN PRN LINE FLUSH Tramadol HCl 50 mg 10/05/20 05:16 Tramadol 50 Mg Tab PO Q6H PRN Pain, Moderate (4-6) Trazodone HCl 50 mg 10/05/20 22:00 Trazodone 50 Mg Tab PO QHS PRN Insomnia
--- NOTE | 2020-10-06 09:21 | Consultation ---
History of Present Illness Consult date: 10/06/20 Requesting physician: ROSEMARIE JEROME Consult reason: pre op evaluation History of present illness: Pt is a 75-year-old male, previously unknown to our practice, who presented with complaints of severe, sudden epigastric pain radiating to his back. Associated with nausea. He was found to have gallstone pancreatitis and is awaiting cholecystectomy. Cardiology has been consulted to provide pre-op risk stratification. Pt denies chest pain, SOB, palpitations, dizziness, lightheadedness, syncope, edema, or any additional cardiac complaints. He has a known hx of CHB s/p PPM [facility] Pt reports he had his PPM interrogated 1-2 weeks ago, which revealed normal device function and approximately 4 years battery life remaining. ECG reveals dual-paced rhythm, no ischemic changes. No acute findings on CXR. Past History Past Medical History: diabetes, HIV/AIDS, hypertension, other (CHB) Past Surgical History: Other (pacemaker) Social history: lives with family Family history: no significant family history Medications and Allergies Allergies Allergy/AdvReac Type Severity Reaction Status Date / Time ibuprofen [From Motrin] AdvReac Unknown Verified 10/05/20 04:30 Home Medications Medication Instructions Recorded Confirmed Last Taken Type Abacavir 600 mg PO QDAY 10/05/20 10/05/20 10/03/20 10:00 History Calcium 500-Vit D3 400 Tablet 500 mg PO QDAY 10/05/20 10/05/20 10/04/20 08:00 History Cholecalciferol (Vitamin D3) 25 mcg PO QDAY 10/05/20 10/05/20 10/04/20 20:00 History Cyanocobalamin [Vitamin B-12] 1,000 mcg PO DAILY 10/05/20 10/05/20 10/04/20 20:00 History Diphenhydramine HCl [Complete 25 mg PO PRN 10/05/20 10/05/20 10/03/20 20:00 History Allergy TAB] Dolutegravir [Tivicay] 50 mg PO QDAY 10/05/20 10/05/20 10/04/20 10:00 History Dry Eye Relief Eye Drops 1 ml OS Q6HR 10/05/20 10/05/20 10/03/20 20:00 History Finasteride 5 mg PO HS 0610/05/20 10/04/20 20:00 History Flomax 0.4 mg PO QDAY 10/05/20 10/05/20 10/03/20 20:00 History Lamivudine 300 mg PO QDAY 10/05/20 10/05/20 10/03/20 10:00 History Moxifloxacin 1 drop OU Q6HR 10/05/20 10/05/20 10/05/20 12:00 History [place]-3 Fatty Acids/Fish Oil [Fish 1,000 mg PO QDAY 10/05/20 10/05/20 10/03/20 20:00 History Oil] Primidone [Mysoline] 50 mg PO BID 10/05/20 10/05/20 10/03/20 20:00 History Propranolol HCl [Inderal LA] 60 mg PO QDAY 10/05/20 10/05/20 10/03/20 History Sertraline HCl 50 mg PO BID 10/05/20 10/05/20 10/03/20 History glipiZIDE [Glucotrol] 10 mg PO HS 10/05/20 10/05/20 10/03/20 20:00 History prednisoLONE ACETATE 1% 1 drop OS Q6HR 10/05/20 10/05/20 10/03/20 20:00 History Active Meds: Active Medications Acetaminophen (Acetaminophen 325 Mg Tab) 650 mg PO Q4H PRN PRN Reason: Pain MILD(1-3)/Fever >100.5/PEÑA Al Hydrox/Mg Hydrox/Simethicone (Alum-Mag Hydroxide-Simethicone [phone]/5ml Oral Liqd 30 Ml) 30 ml PO Q4H PRN PRN Reason: Indigestion Enoxaparin Sodium (Enoxaparin 40 Mg/0.4 Ml Inj) 40 mg SUB-Q QDAY@1000 ISIS; Protocol Last Admin: 10/05/20 09:32 Dose: 40 mg Documented by: Hydralazine HCl (Hydralazine 20 Mg/1 Ml Inj) 10 mg IV Q4H PRN PRN Reason: Hypertension Dextrose/Sodium Chloride (D5ns) 1,000 mls @ 150 mls/hr IV DIRECT ISIS Last Admin: 10/06/20 08:44 Dose: 150 mls/hr Documented by: Insulin Human Regular (Insulin Regular, Human 100 Units/1 Ml) 0 units SUB-Q ACHS ISIS; Protocol Magnesium Hydroxide (Magnesium Hydroxide (Mom) Oral Liqd Udc) 30 ml PO Q4H PRN PRN Reason: Constipation Metoclopramide HCl (Metoclopramide 10 Mg/2 Ml Inj) 10 mg IV Q6H PRN PRN Reason: Nausea And Vomiting Last Admin: 10/05/20 16:12 Dose: 10 mg Documented by: Morphine Sulfate (Morphine 2 Mg/1 Ml Inj) 2 mg IV Q4H PRN PRN Reason: Pain , Severe (7-10) Last Admin: 10/06/20 01:40 Dose: 2 mg Documented by: Ondansetron HCl (Ondansetron 4 Mg/2 Ml Inj) 4 mg IV Q8H PRN PRN Reason: Nausea And Vomiting Last Admin: 10/05/20 09:32 Dose: 4 mg Documented by: Sodium Chloride (Sodium Chloride 0.9% 10 Ml Flush Syringe) 10 ml IV PRN PRN PRN Reason: LINE FLUSH Tramadol HCl (Tramadol 50 Mg Tab) 50 mg PO Q6H PRN PRN Reason: Pain, Moderate (4-6) Trazodone HCl (Trazodone 50 Mg Tab) 50 mg PO QHS PRN PRN Reason: Insomnia Review of Systems Constitutional: no fever, no chills Ears, nose, mouth and throat: no nasal congestion, no sore throat Cardiovascular: no chest pain, no orthopnea, no palpitations, no edema, no syncope, no lightheadedness, no shortness of breath, no dyspnea on exertion, no paroxysmal nocturnal dyspnea, no claudication Respiratory: no cough, no shortness of breath, no dyspnea on exertion Gastrointestinal: abdominal pain, nausea, no vomiting, no diarrhea, no constipation Genitourinary Male: no dysuria, no flank pain Musculoskeletal: no neck stiffness, no neck pain, no myalgias Integumentary: no rash, no wounds Neurological: no head injury, no paralysis, no weakness, no parathesias, no numbness, no tingling, no seizures, no syncope, no vertigo, no headaches Endocrine: no cold intolerance, no heat intolerance Hematologic/Lymphatic: no easy bruising, no easy bleeding Allergic/Immunologic: no anaphylaxis Physical Examination Last Vital Signs Temp 100.8 F H 10/06/20 11:30 Pulse 89 10/06/20 11:30 Resp 19 10/06/20 11:30 BP 123/81 10/06/20 11:30 Pulse Ox 99 10/06/20 11:30 General appearance: no acute distress HEENT: Positive: EOMI, Normocephaly, Mucus Membranes Moist Neck: Positive: neck supple, trachea midline. Negative: JVD/HJR Cardiac: Positive: Reg Rate and Rhythm, S1/S2 Lungs: Positive: clear to auscultation Neuro: Positive: Grossly Intact Abdomen: Positive: Tender Skin: Negative: Rash Musculoskeletal: No Pain Extremities: Present: upper extr. pulses, lower extr. pulses, warm. Absent: edema Results 10/06/20 04:23 10/06/20 04:23 Cardiac Enzymes 10/05/20 10/06/20 Range/Units 11:58 04:23 AST 227 H 245 H (5-40) units/L Coagulation 10/05/20 Range/Units 02:06 PT 14.1 (12.2-14.9) Sec. INR 1.04 (0.87-1.13) APTT 28.3 (24.2-36.6) Sec. CBC 10/05/20 10/06/20 Range/Units 02:06 04:23 WBC 8.2 7.2 (4.5-11.0) K/mm3 RBC 4.19 3.73 (3.65-5.03) M/mm3 Hgb 14.4 12.8 (11.8-15.2) gm/dl Hct 40.6 36.5 (35.5-45.6) % Plt Count 130 L 115 L (140-440) K/mm3 Lymph # (Auto) 2.1 1.5 (1.2-5.4) K/mm3 [place] # (Auto) 0.6 0.5 (0.0-0.8) K/mm3 Eos # (Auto) 0.2 0.1 (0.0-0.4) K/mm3 Baso # (Auto) 0.0 0.0 (0.0-0.1) K/mm3 Comprehensive Metabolic Panel 10/05/20 10/06/20 Range/Units 11:58 04:23 Sodium 142 (137-145) mmol/L Potassium 3.6 (3.6-5.0) mmol/L Chloride 107.3 H (98-107) mmol/L Carbon Dioxide 26 (22-30) mmol/L BUN 12 (9-20) mg/dL Creatinine 1.1 (0.8-1.3) mg/dL Glucose 235 H (75-100) mg/dL Calcium 7.7 L (8.4-10.2) mg/dL Direct Bilirubin 2.7 H 4.1 H (0-0.2) mg/dL Indirect Bilirubin 0.4 mg/dL AST 227 H 245 H (5-40) units/L ALT 140 H 237 H (7-56) units/L Alkaline Phosphatase 137 H 135 H (35-129) units/L Total Protein 7.3 5.9 L (6.3-8.2) g/dL Albumin 4.4 3.3 L (3.9-5) g/dL - Imaging and Cardiology Echo: pending, other (06/2014 - EF 60%, mildly dilated LA, moderate MR, dilated IVC, moderate diastolic dysfxn) EKG: report reviewed, image reviewed - EKG Interpretation EKG: no acute changes EKG interpretations - Telemetry EKG Rhythm: Sinus Rhythm - EKG Sinus rhythms and dysrhythmias: sinus rhythm Pacemaker: normal AV synchronous pac Assessment and Plan Echo preliminarily reveals EF ~ 53%, no significant findings. Await detailed report. Pt is low-risk from a cardiac standpoint and stable to proceed with ERCP in AM. RCRI Class is II (1 point, 6.0% risk of MACE within 30 days). Pt seen in conjunction with Dr. Erica Navarro, who agrees with the assessment and plan of care. - Patient Problems (1) Gallstone pancreatitis Current Visit: Yes Status: Acute (2) Cardiac pacemaker in situ Current Visit: Yes Status: Chronic (3) History of complete heart block Current Visit: Yes Status: Chronic (4) Hypertension Current Visit: Yes Status: Chronic Qualifiers: Hypertension type: essential hypertension Qualified Code(s): I10 - Essential (primary) hypertension (5) DM2 (diabetes mellitus, type 2) Current Visit: Yes Status: Chronic (6) HIV infection Current Visit: Yes Status: Chronic (7) Essential tremor Current Visit: Yes Status: Chronic
[2020-10-06] MEDS: ENOXAPARIN 40 MG/0.4 ML INJ SUB-Q SCH (10:07)
[2020-10-06] MEDS: INSULIN REGULAR, HUMAN 100 UNITS/1 ML SUB-Q SCH ×3 (11:46→21:33)
[2020-10-06] MEDS: ACETAMINOPHEN 325 MG TAB PO PRN (11:50)
--- NOTE | 2020-10-06 12:49 | Gastroenterology Progress Note ---
Assessment and Plan # Gallstone pancreatitis - epigastric pain x 1 day - Ct showing cholelithiasis and pancreatitis - US showing mild prominent bile duct - LFTs elevated with Tbili, ALT, and Alk phos trending up today. - MRCP ordered but cannot be done due to pacemaker. - surgery consulted. Rec - medical management for pancreatitis with IVF and pain control - NPO MN - will plan for ERCP tomorrow tentatively. - monitor CMP - hold anticoagulation. - discussed with surgery, Dr. Tellez. - Patient Problems (1) Acute pancreatitis Current Visit: Yes Status: Acute Subjective Date of service: 10/06/20 Interval history: Patient reports abdominal pain improving. No appetite. No nausea/vomiting. Objective - Constitutional Vitals: Temp Pulse Resp BP Pulse Ox 100.8 F H 89 19 123/81 99 10/06/20 11:30 10/06/20 11:30 10/06/20 11:30 10/06/20 11:30 10/06/20 11:30 General appearance: no acute distress - EENT Eyes: EOM intact ENT: hearing intact - Respiratory Respiratory effort: normal - Cardiovascular Rhythm: regular Heart Sounds: Present: S1 & S2 - Gastrointestinal General gastrointestinal: Present: soft, tender, non-distended, normal bowel sounds - Neurologic Neurological: alert and oriented x3 - Psychiatric Psychiatric: appropriate mood/affect - Labs CBC & Chem 7: 10/06/20 04:23 10/06/20 04:23 Labs: Laboratory Results - last 24 hr 10/05/20 10/05/20 10/05/20 11:58 11:58 11:58 WBC RBC Hgb Hct MCV MCH MCHC RDW Plt Count Lymph % (Auto) [place] % (Auto) Eos % (Auto) Baso % (Auto) Lymph # (Auto) [place] # (Auto) Eos # (Auto) Baso # (Auto) Seg Neutrophils % Seg Neutrophils # Sodium Potassium Chloride Carbon Dioxide Anion Gap BUN Creatinine Estimated GFR BUN/Creatinine Ratio Glucose POC Glucose Hemoglobin A1c 6.7 H Lactic Acid 1.10 Calcium Total Bilirubin 3.10 H Direct Bilirubin 2.7 H Indirect Bilirubin 0.4 AST 227 H ALT 140 H Alkaline Phosphatase 137 H Total Protein 7.3 Albumin 4.4 Albumin/Globulin Ratio 1.5 Lipase 10/05/20 10/05/20 10/06/20 11:58 17:23 04:23 WBC 7.2 RBC 3.73 Hgb 12.8 Hct 36.5 MCV 98 H MCH 34 H MCHC 35 H RDW 13.8 Plt Count 115 L Lymph % (Auto) 21.3 [place] % (Auto) 6.8 Eos % (Auto) 0.7 Baso % (Auto) 0.3 Lymph # (Auto) 1.5 [place] # (Auto) 0.5 Eos # (Auto) 0.1 Baso # (Auto) 0.0 Seg Neutrophils % 70.9 H Seg Neutrophils # 5.1 Sodium Potassium Chloride Carbon Dioxide Anion Gap BUN Creatinine Estimated GFR BUN/Creatinine Ratio Glucose POC Glucose 236 H Hemoglobin A1c Lactic Acid Calcium Total Bilirubin Direct Bilirubin Indirect Bilirubin AST ALT Alkaline Phosphatase Total Protein Albumin Albumin/Globulin Ratio Lipase 2888 H 10/06/20 10/06/20 10/06/20 04:23 07:16 11:00 WBC RBC Hgb Hct MCV MCH MCHC RDW Plt Count Lymph % (Auto) [place] % (Auto) Eos % (Auto) Baso % (Auto) Lymph # (Auto) [place] # (Auto) Eos # (Auto) Baso # (Auto) Seg Neutrophils % Seg Neutrophils # Sodium 142 Potassium 3.6 Chloride 107.3 H Carbon Dioxide 26 Anion Gap 12 BUN 12 Creatinine 1.1 Estimated GFR > 60 BUN/Creatinine Ratio 11 Glucose 235 H POC Glucose 283 H 268 H Hemoglobin A1c Lactic Acid Calcium 7.7 L Total Bilirubin 4.40 H Direct Bilirubin 4.1 H Indirect Bilirubin AST 245 H ALT 237 H Alkaline Phosphatase 135 H Total Protein 5.9 L Albumin 3.3 L Albumin/Globulin Ratio 1.3 Lipase 998 H
--- NOTE | 2020-10-06 13:56 | Progress Note ---
Assessment and Plan 75 yo M with gallstone pancreatitis Pt condition improved today. Unable to have MRI d/t PPM. Plan: 1. May start clear liquids, n.p.o. past midnight tonight 2. IVF 3. prn pain and nausea control 4. DVT and GI ppx 5. start IV abx -Zosyn 6. daily CMP and lipase 7. GI on board - d/w Dr. Santacruz Bilirubin trending up - recommend ERCP prior to CCY. ERCP planned for tomorrow. 8. Cards consult for preop risk assessment 9. Recommend cholecystectomy this admission. Will proceed to the OR when cardiology evaluation is completed and following ERCP. discussed plan with patient in detail and he is agreeable. Thank you. Please call with any questions or concerns. Evaluation and treatment of this patient was during the time of the national and state emergency arising from COVID19 coronavirus pandemic. Treatment and procedures performed meet the current and available best practice and guidelines for patient during the COVID pandemic. Subjective Date of service: 10/06/20 Narrative: Patient seen and examined. T-max of 100.8 this afternoon. He states he feels much better. Now he feels a heaviness in his epigastrium but his pain is completely resolved. No nausea or vomiting. Objective Vital Signs - 12hr 10/06/20 10/06/20 10/06/20 02:00 04:00 04:13 Temperature 99.2 F Pulse Rate 74 74 Pulse Rate [ Left Radial] Pulse Rate [ Right Radial] Respiratory 18 18 Rate Blood Pressure 157/77 Blood Pressure [Left] O2 Sat by Pulse 93 Oximetry 10/06/20 10/06/20 10/06/20 07:15 10:00 11:30 Temperature 98.9 F 100.8 F H Pulse Rate 69 89 89 Pulse Rate [ 69 Left Radial] Pulse Rate [ 69 Right Radial] Respiratory 20 17 19 Rate Blood Pressure 145/62 Blood Pressure 123/81 [Left] O2 Sat by Pulse 95 99 Oximetry - General physical appearance Narrative Exam: Gen.: Awake, alert, oriented x3. No apparent distress ENT: Trachea midline. No lymphadenopathy. No scleral icterus or conjunctival pallor CV: S1, S2 present Respiratory: No audible wheezes Abdomen: Soft, nondistended, nontender. No rebound, rigidity, guarding Extremities: No clubbing, cyanosis, edema - Labs 10/06/20 04:23 10/06/20 04:23 Diabetes panel 10/05/20 10/05/20 10/06/20 Range/Units 11:58 11:58 04:23 Sodium 142 (137-145) mmol/L Potassium 3.6 (3.6-5.0) mmol/L Chloride 107.3 H (98-107) mmol/L Carbon Dioxide 26 (22-30) mmol/L BUN 12 (9-20) mg/dL Creatinine 1.1 (0.8-1.3) mg/dL Glucose 235 H (75-100) mg/dL Hemoglobin A1c 6.7 H (4-6) % Calcium 7.7 L (8.4-10.2) mg/dL AST 227 H 245 H (5-40) units/L ALT 140 H 237 H (7-56) units/L Alkaline Phosphatase 137 H 135 H (35-129) units/L Total Protein 7.3 5.9 L (6.3-8.2) g/dL Albumin 4.4 3.3 L (3.9-5) g/dL Calcium panel 10/05/20 10/06/20 Range/Units 11:58 04:23 Calcium 7.7 L (8.4-10.2) mg/dL Albumin 4.4 3.3 L (3.9-5) g/dL Pituitary panel 10/06/20 Range/Units 04:23 Sodium 142 (137-145) mmol/L Potassium 3.6 (3.6-5.0) mmol/L Chloride 107.3 H (98-107) mmol/L Carbon Dioxide 26 (22-30) mmol/L BUN 12 (9-20) mg/dL Creatinine 1.1 (0.8-1.3) mg/dL Glucose 235 H (75-100) mg/dL Calcium 7.7 L (8.4-10.2) mg/dL Adrenal panel 10/05/20 10/06/20 Range/Units 11:58 04:23 Sodium 142 (137-145) mmol/L Potassium 3.6 (3.6-5.0) mmol/L Chloride 107.3 H (98-107) mmol/L Carbon Dioxide 26 (22-30) mmol/L BUN 12 (9-20) mg/dL Creatinine 1.1 (0.8-1.3) mg/dL Glucose 235 H (75-100) mg/dL Calcium 7.7 L (8.4-10.2) mg/dL Total Bilirubin 3.10 H 4.40 H (0.1-1.2) mg/dL AST 227 H 245 H (5-40) units/L ALT 140 H 237 H (7-56) units/L Alkaline Phosphatase 137 H 135 H (35-129) units/L Total Protein 7.3 5.9 L (6.3-8.2) g/dL Albumin 4.4 3.3 L (3.9-5) g/dL
[2020-10-06] MEDS: PIPERACIL/TAZOBACTA 4.5/NS 100 4.5 GM/100 ML VIAL IV SCH ×2 (15:55→21:33)
[2020-10-06] MEDS ORDERED: D5W/0.9% NACL 1,000 ML IV SCH (18:00)
[2020-10-06] MEDS: hydrALAZINE 20 MG/1 ML INJ IV PRN (18:35)
[2020-10-07 05:31] LABS: Basophils # (Auto) 0.1 K/mm3 (0.0-0.1); Basophils % (Auto) 1.1 % (0.0-1.8); Eosinophils % (Auto) 0.5 % (0.0-4.3); Hematocrit 35.6 % (35.5-45.6); Hemoglobin 12.8 gm/dl (11.8-15.2); Lymphocytes # (Auto) 1.3 K/mm3 (1.2-5.4); Lymphocytes % (Auto) 14.9 % (13.4-35.0); Mean Corpuscular HGB Conc 36 % (32-34); Mean Corpuscular Volume 97 fl (84-94); Monocytes # (Auto) 0.5 K/mm3 (0.0-0.8); Monocytes % (Auto) 6.3 % (0.0-7.3); Platelet Count 103 K/mm3 (140-440); Red Blood Count 3.66 M/mm3 (3.65-5.03); Red Cell Distribution Width 13.5 % (13.2-15.2)
[2020-10-07] MEDS: PIPERACIL/TAZOBACTA 4.5/NS 100 4.5 GM/100 ML VIAL IV SCH ×3 (05:31→21:58)
[2020-10-07 05:49] LABS: Alanine Aminotransferase 196 units/L (7-56); Albumin 3.3 g/dL (3.9-5); BUN/Creatinine Ratio 10; Blood Urea Nitrogen 9 mg/dL (9-20); Calcium 8.3 mg/dL (8.4-10.2); Hemolysis Index 7
[2020-10-07] MEDS ORDERED: SODIUM CHLORIDE 0.9% 1000 ML 1,000 ML IV SCH (07:00)
[2020-10-07] MEDS: INSULIN REGULAR, HUMAN 100 UNITS/1 ML SUB-Q SCH ×4 (07:51→23:00)
--- NOTE | 2020-10-07 08:08 | Anesthesia Consultation ---
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 Pancreatis and Cholelithiasis) - Endocrine Hx Renal Disease: No Hx Liver Disease: No Hx Non-Insulin Dependent Diabetes: Yes Hx Thyroid Disease: No (Blood Gucose 210 this am @0800) - Hematic Hx Anemia: No - Other Systems Hx Alcohol Use: No Hx Obesity: No - Additional Comments Anesthesia Medical History Comments: Hx. emergence delirium
--- NOTE | 2020-10-07 08:11 | Anesthesia Day of Surgery ---
Anesthesia Day of Surgery - Day of Surgery Patient Examined: Yes Patient H&P Reviewed: Yes Patient is NPO: Yes Beta Blockers: No Cardiac Clearance: No Pulmonary Clearance: No
[2020-10-07] MEDS ORDERED: SODIUM CHLORIDE 0.9% 100 ML ONE (08:12)
[2020-10-07] MEDS ORDERED: LIDOCAINE MPF (2%) 20 MG/1 ML VIAL 5 ML ONE (08:17)
[2020-10-07] MEDS ORDERED: ONDANSETRON 4 MG/2 ML INJ ONE (08:17)
[2020-10-07] MEDS ORDERED: propofoL 200 MG/20 ML VIAL IV ONE ×3 (08:17→09:01)
[2020-10-07] MEDS ORDERED: HYDROmorphone 1 MG/1 ML INJ ONE (08:17)
[2020-10-07] MEDS ORDERED: GLUCAGON (HUMAN RECOMBINANT) 1 MG/ML INJ IV ONE (08:57)
--- NOTE | 2020-10-07 08:59 | Progress Note ---
Assessment and Plan Assessment and plan: Acute pancreatitis Abdominal pain Sick sinus syndrome s/p pacemaker placement History of HIV 10/05/2020. On admission, lipase noted to be 3256. Continue IV fluid hydration, pain management and GI consultation pending. CT scan reveals distended gallbladder with cholelithiasis. Mild inflammation surrounding the pancreatic body and head with trace fluid. Await surgery evaluation for gallstone smalls creatitis. 10/06/2020. Continue n.p.o. status per surgery recommendations. Lipase improved to 998. LFTs slightly more elevated. Await GI evaluation. Consider MRCP. Cholecystectomy per surgery recommendations. Cardiology preop risk assessment. 10/07/2020. Continue IV antibiotics of Zosyn. Lipase has improved significantly to 136. However, bilirubin increasing and remains high at 5.9. GI to perform ERCP today. Cardiology consult for preop risk assessment. Echocardiogram reveals EF of 55% with no significant findings. Patient deemed low risk from a cardiac standpoint. Cholecystectomy per surgery after ERCP. History Interval history: No new issues overnight Hospitalist Physical - Constitutional Vitals: Temp Pulse Resp BP Pulse Ox 98.9 F 73 18 163/76 97 10/07/20 07:20 10/07/20 07:23 10/07/20 07:23 10/07/20 07:23 10/07/20 07:23 General appearance: Present: no acute distress - EENT Eyes: Present: PERRL, EOM intact ENT: hearing intact, clear oral mucosa, dentition normal - Neck Neck: Present: supple, normal ROM - Respiratory Respiratory effort: normal Respiratory: bilateral: CTA - Cardiovascular Rhythm: regular Heart Sounds: Present: S1 & S2. Absent: gallop, rub - Extremities Extremities: no ischemia, No edema, Full ROM - Abdominal General gastrointestinal: soft, non-tender, non-distended, normal bowel sounds - Integumentary Integumentary: Present: clear, warm, dry - Neurologic Neurologic: CNII-XII intact, moves all extremities Results - Labs CBC & Chem 7: 10/07/20 05:01 10/07/20 05:01 Labs: Laboratory Last Values WBC 8.5 K/mm3 (4.5-11.0) 10/07/20 05:01 RBC 3.66 M/mm3 (3.65-5.03) 10/07/20 05:01 Hgb 12.8 gm/dl (11.8-15.2) 10/07/20 05:01 Hct 35.6 % (35.5-45.6) 10/07/20 05:01 MCV 97 fl (84-94) H 10/07/20 05:01 MCH 35 pg (28-32) H 10/07/20 05:01 MCHC 36 % (32-34) H 10/07/20 05:01 RDW 13.5 % (13.2-15.2) 10/07/20 05:01 Plt Count 103 K/mm3 (140-440) L 10/07/20 05:01 Lymph % (Auto) 14.9 % (13.4-35.0) 10/07/20 05:01 [place] % (Auto) 6.3 % (0.0-7.3) 10/07/20 05:01 Eos % (Auto) 0.5 % (0.0-4.3) 10/07/20 05:01 Baso % (Auto) 1.1 % (0.0-1.8) 10/07/20 05:01 Lymph # (Auto) 1.3 K/mm3 (1.2-5.4) 10/07/20 05:01 [place] # (Auto) 0.5 K/mm3 (0.0-0.8) 10/07/20 05:01 Eos # (Auto) 0.0 K/mm3 (0.0-0.4) 10/07/20 05:01 Baso # (Auto) 0.1 K/mm3 (0.0-0.1) 10/07/20 05:01 Seg Neutrophils % 77.2 % (40.0-70.0) H 10/07/20 05:01 Seg Neutrophils # 6.6 K/mm3 (1.8-7.7) 10/07/20 05:01 PT 14.1 Sec. (12.2-14.9) 10/05/20 02:06 INR 1.04 (0.87-1.13) 10/05/20 02:06 APTT 28.3 Sec. (24.2-36.6) 10/05/20 02:06 Sodium 144 mmol/L (137-145) 10/07/20 05:01 Potassium 3.4 mmol/L (3.6-5.0) L 10/07/20 05:01 Chloride 108.4 mmol/L (98-107) H 10/07/20 05:01 Carbon Dioxide 24 mmol/L (22-30) 10/07/20 05:01 Anion Gap 15 mmol/L 10/07/20 05:01 BUN 9 mg/dL (9-20) 10/07/20 05:01 Creatinine 0.9 mg/dL (0.8-1.3) 10/07/20 05:01 Estimated GFR > 60 ml/min 10/07/20 05:01 BUN/Creatinine Ratio 10 % 10/07/20 05:01 Glucose 191 mg/dL (75-100) H 10/07/20 05:01 POC Glucose 210 mg/dL (70-105) H 10/07/20 08:00 Hemoglobin A1c 6.7 % (4-6) H 10/05/20 11:58 Lactic Acid 1.10 mmol/L (0.7-2.0) 10/05/20 11:58 Calcium 8.3 mg/dL (8.4-10.2) L 10/07/20 05:01 Total Bilirubin 5.90 mg/dL (0.1-1.2) H 10/07/20 05:01 Direct Bilirubin 4.1 mg/dL (0-0.2) H 10/06/20 04:23 Indirect Bilirubin 0.4 mg/dL 10/05/20 11:58 AST 127 units/L (5-40) H 10/07/20 05:01 ALT 196 units/L (7-56) H 10/07/20 05:01 Alkaline Phosphatase 139 units/L (35-129) H 10/07/20 05:01 Total Protein 6.1 g/dL (6.3-8.2) L 10/07/20 05:01 Albumin 3.3 g/dL (3.9-5) L 10/07/20 05:01 Albumin/Globulin Ratio 1.2 % 10/07/20 05:01 Lipase 136 units/L (13-60) H 10/07/20 05:01 Urine Color Yellow (Yellow) 10/05/20 02:06 Urine Turbidity Clear (Clear) 10/05/20 02:06 Urine pH 6.0 (5.0-7.0) 10/05/20 02:06 Ur Specific [place] 1.009 (1.003-1.030) 10/05/20 02:06 Urine Protein 30 mg/dl mg/dL (Negative) 10/05/20 02:06 Urine Glucose (UA) 50 mg/dL (Negative) 10/05/20 02:06 Urine Ketones Trace mg/dL (Negative) 10/05/20 02:06 Urine Blood Small (Negative) A 10/05/20 02:06 Urine Nitrite Negative (Negative) 10/05/20 02:06 Urine Bilirubin Negative (Negative) 10/05/20 02:06 Urine Urobilinogen < 2.0 mg/dL (<2.0) 10/05/20 02:06 Ur Leukocyte Esterase Negative (Negative) 10/05/20 02:06 Urine WBC (Auto) < 1.0 /HPF (0.0-6.0) 10/05/20 02:06 Urine RBC (Auto) 1.0 /HPF (0.0-6.0) 10/05/20 02:06 U Epithel Cells (Auto) < 1.0 /HPF (0-13.0) 10/05/20 02:06 Microbiology: Microbiology 10/06/20 08:39 Peripheral/Venous Blood Culture - Preliminary NO GROWTH AFTER 24 HOURS 10/05/20 11:58 Peripheral/Venous Blood Culture - Preliminary NO GROWTH AFTER 24 HOURS [place]/IV: Voiding Method Urinal Active Medications - Current Medications Current Medications: Generic Name Dose Route Start Last Admin Trade Name Freq PRN Reason Stop Dose Admin Acetaminophen 650 mg 10/05/20 05:13 10/06/20 11:50 Acetaminophen 325 Mg Tab PO 650 mg Q4H PRN Administration Pain MILD(1-3)/Fever >100.5/PEÑA Al Hydrox/Mg Hydrox/Simethicone 30 ml 10/05/20 05:13 Alum-Mag Hydroxide-Simethicone [id number]/5ml Oral Liqd 30 Ml PO Q4H PRN Indigestion Enoxaparin Sodium 40 mg 10/05/20 10:00 10/06/20 10:07 Enoxaparin 40 Mg/0.4 Ml Inj SUB-Q 40 mg QDAY@1000 ISIS Administration Protocol Hydralazine HCl 10 mg 10/05/20 05:42 10/06/20 18:35 Hydralazine 20 Mg/1 Ml Inj IV 10 mg Q4H PRN Administration Hypertension Piperacillin Sod/Tazobactam Sod 4.5 gm in 100 mls @ 200 mls/hr 10/06/20 14:00 10/07/20 05:31 Zosyn/Ns 4.5gm/100ml IV 200 mls/hr Q8HR ISIS Administration Protocol Sodium Chloride 1,000 mls @ 50 mls/hr 10/07/20 07:00 Nacl 0.9% 1000 Ml IV DIRECT ISIS Dextrose/Sodium Chloride 1,000 mls @ 150 mls/hr 10/06/20 18:00 10/06/20 17:53 D5ns IV 150 mls/hr DIRECT ISIS Administration Insulin Human Regular 0 units 10/06/20 11:30 10/07/20 07:51 Insulin Regular, Human 100 Units/1 Ml SUB-Q Not Given ACHS ISIS Protocol Magnesium Hydroxide 30 ml 10/05/20 05:13 10/06/20 15:57 Magnesium Hydroxide (Mom) Oral Liqd Udc PO 30 ml Q4H PRN Administration Constipation Metoclopramide HCl 10 mg 10/05/20 05:13 10/05/20 16:12 Metoclopramide 10 Mg/2 Ml Inj IV 10 mg Q6H PRN Administration Nausea And Vomiting Morphine Sulfate 2 mg 10/05/20 08:00 10/06/20 10:11 Morphine 2 Mg/1 Ml Inj IV 2 mg Q4H PRN Administration Pain , Severe (7-10) Ondansetron HCl 4 mg 10/05/20 05:13 10/05/20 09:32 Ondansetron 4 Mg/2 Ml Inj IV 4 mg Q8H PRN Administration Nausea And Vomiting Sodium Chloride 10 ml 10/05/20 05:13 Sodium Chloride 0.9% 10 Ml Flush Syringe IV PRN PRN LINE FLUSH Tramadol HCl 50 mg 10/05/20 05:16 Tramadol 50 Mg Tab PO Q6H PRN Pain, Moderate (4-6) Trazodone HCl 50 mg 10/05/20 22:00 Trazodone 50 Mg Tab PO QHS PRN Insomnia
--- NOTE | 2020-10-07 09:20 | Post Operative Note ---
Pre-op diagnosis: Choledocholithiasis Post-op diagnosis: other (1. Normal pancreatic duct. 2. Papillary stenosis. 3. Unable to visualize biliary tree) Findings: 1. Normal pancreatic duct. 2. Papillary stenosis - able to get 0.025", NOT 0.035" guidewire into pancreatic duct. Precut papillotomy done, but unable to advance catheter into pancreatic duct. 3. Unable to locate biliary tree. Procedure: ERCP with sphincterotomy Anesthesia: MAC Surgeon: EMMY SHIRLEY Estimated blood loss: none Pathology: none Condition: stable Disposition: floor (Options are to proceed with CCY with IOC, vs PTC and rendezvous, vs transfer elsewhere for advanced techniques such as rendezvous with EUS.)
--- NOTE | 2020-10-07 09:43 | Operative Report ---
DATE OF SURGERY: 10/07/2020 PROCEDURE: Endoscopic retrograde cholangiopancreatography with sphincterotomy. PREOPERATIVE DIAGNOSIS: Choledocholithiasis. POSTOPERATIVE DIAGNOSIS: Papillary stenosis and normal pancreatogram. Failed biliary cannulation. INDICATIONS: A 75-year-old man, who presented with gallstone pancreatitis. He has abnormal liver enzymes. MRCP was not possible due to pacemaker. Liver enzymes remain persistently elevated and therefore ERCP was done preoperatively. Procedure, indications, risks, and benefits were explained and consent was obtained. DESCRIPTION OF PROCEDURE: The patient was placed on the abdomen on fluoroscopy table and sedated. A duodenoscope was passed through the mouth and oropharynx into the descending duodenum and then gradually withdrawn with close inspection of mucosa until the major papilla was visualized. Selective cannulation of the pancreatic duct was achieved using the Fusion sphincterotome and guidewire eventually. FINDINGS: 1. Flat ampulla. 2. Pancreatic duct is normal in course and caliber. 3. The guidewire was unable to be passed across the ampulla into any of the ductal orifices. A 0.035 inch guidewire was switched to a 0.025 inch guidewire. This was able to traverse the pancreatic sphincter and go to the proximal body. The sphincterotome was then advanced into the ampulla as far as possible and precut papillotomy was performed. The tip was unable to go freely into the pancreatic duct and the pancreatic sphincter was very stenotic and resisted efforts to advance the catheter. Subsequently, multiple attempts were made to find the biliary orifice, which were unsuccessful. The patient tolerated the procedure well without immediate complications. IMPRESSION: 1. Papillary stenosis. 2. Normal pancreatogram. 3. Precut papillotomy done to facilitate access, but unable to advance catheter freely into the pancreatic duct past the sphincter and unable to find the biliary tree. RECOMMENDATIONS: 1. Monitor for complications. 2. Options are to proceed with cholecystectomy with intraoperative cholangiogram versus consideration of PTC versus endoscopic ultrasound elsewhere with rendezvous procedure. TID: [id number] RECEIPT: [id number] [facility]
[2020-10-07] MEDS: hydrALAZINE 20 MG/1 ML INJ IV PRN (09:57)
[2020-10-07] MEDS ORDERED: INDOMETHACIN 25 MG CAP PO ONE (10:04)
[2020-10-07] MEDS ORDERED: LACTATED RINGERS 1,000 ML IV ONE (10:30)
--- NOTE | 2020-10-07 11:04 | Post Anesthesia Evaluation ---
- Post Anesthesia Evaluation Patient Participated: Yes Airway Patent: Yes Stable Respiratory Function: Yes Nausea/Vomiting: No Temp > 96.8F: Yes Pain Manageable: Yes Adequeate Hydration: Yes Anesthesia Complications: No
[2020-10-07] MEDS: ENOXAPARIN 40 MG/0.4 ML INJ SUB-Q SCH (11:18)
--- NOTE | 2020-10-07 11:35 | Fluoroscopy Report ---
ERCP Indication: History of biliary stricture Impression: 4 images of the right upper quadrant were submitted for ERCP. Per the technologist note s, ERCP was attempted but the ampulla was stenotic. Wire went into the pancreatic duct could not adva nced into the biliary duct. A papillotomy was performed. Please refer to the operative note for compl ete details. Fluoroscopic time: 1 minute and 30 seconds Signer Name: Aden Headley MD Signed: 10/07/2020 11:31 AM Workstation Name: [id number]
--- NOTE | 2020-10-07 14:01 | Event Note ---
Date: 10/07/20 patient seen this morning post ERCP. Reports abdominal pressure but no pain. No nausea/vomiting. Ordered IVF with LR. Monitor for signs of complication or decompensation post ERCP. Monitor labs including cbc and CMP Based on clinical course and labs, options for further management including CCY with IOC vs PTC vs transfer to tertiary center.
--- NOTE | 2020-10-07 16:57 | Progress Note ---
Assessment and Plan 75 yo M with gallstone pancreatitis Patient stable. Tolerating diet, afebrile. Pain is resolved. ERCP attempted today however common bile duct could not be cannulated. Plan: 1. clear liquids diet 2. IVF 3. prn pain and nausea control 4. DVT and GI ppx 5. abx -Zosyn 6. daily CMP and lipase 7. GI on board -discussed with Dr. Brand and Dr. Aragon. If Bilirubin continues to trend up, recommend transfer to facility with advanced endoscopic techniques - [facility] vs [place] 8. Patient will require CCY but this is not urgent. If bili continues to trend up, choledocolithiasis should be addressed first. Plan discussed with patient and questions answered. Thank you. Please call with any questions or concerns. Evaluation and treatment of this patient was during the time of the national and state emergency arising from COVID19 coronavirus pandemic. Treatment and procedures performed meet the current and available best practice and guidelines for patient during the COVID pandemic. Subjective Date of service: 10/07/20 Narrative: Patient seen and examined. No acute complaints. No abdominal pain. Does complain of some abdominal pressure, bloating. No fevers or chills. Tolerating liquid diet. Status post ERCP today however duct could not be cannulated. Objective Vital Signs - 12hr 10/07/20 10/07/20 10/07/20 07:20 07:23 07:40 Temperature 98.9 F 98.1 F Pulse Rate 73 64 Respiratory 18 18 Rate Blood Pressure 163/76 161/75 O2 Sat by Pulse 97 97 Oximetry 10/07/20 10/07/20 10/07/20 09:30 09:45 09:57 Temperature 97.6 F Pulse Rate 93 H 68 79 Respiratory 16 14 Rate Blood Pressure 168/85 175/85 175/87 O2 Sat by Pulse 99 99 Oximetry 10/07/20 10/07/20 10/07/20 10:00 10:10 10:15 Temperature Pulse Rate 79 87 89 Respiratory 16 18 15 Rate Blood Pressure 181/87 175/87 155/84 O2 Sat by Pulse 99 96 97 Oximetry 10/07/20 10/07/20 10:20 12:19 Temperature 98.7 F Pulse Rate 85 82 Respiratory 16 18 Rate Blood Pressure 159/85 137/65 O2 Sat by Pulse 97 96 Oximetry - General physical appearance Narrative Exam: Gen.: Awake, alert, oriented x3. No apparent distress ENT: Trachea midline. No lymphadenopathy. No scleral icterus or conjunctival pallor CV: S1, S2 present Respiratory: No audible wheezes Abdomen: Soft, nondistended, nontender. No rebound, rigidity, guarding Extremities: No clubbing, cyanosis, edema - Labs 10/07/20 05:01 10/07/20 05:01 Diabetes panel 10/07/20 Range/Units 05:01 Sodium 144 (137-145) mmol/L Potassium 3.4 L (3.6-5.0) mmol/L Chloride 108.4 H (98-107) mmol/L Carbon Dioxide 24 (22-30) mmol/L BUN 9 (9-20) mg/dL Creatinine 0.9 (0.8-1.3) mg/dL Glucose 191 H (75-100) mg/dL Calcium 8.3 L (8.4-10.2) mg/dL AST 127 H (5-40) units/L ALT 196 H (7-56) units/L Alkaline Phosphatase 139 H (35-129) units/L Total Protein 6.1 L (6.3-8.2) g/dL Albumin 3.3 L (3.9-5) g/dL Calcium panel 10/07/20 Range/Units 05:01 Calcium 8.3 L (8.4-10.2) mg/dL Albumin 3.3 L (3.9-5) g/dL Pituitary panel 10/07/20 Range/Units 05:01 Sodium 144 (137-145) mmol/L Potassium 3.4 L (3.6-5.0) mmol/L Chloride 108.4 H (98-107) mmol/L Carbon Dioxide 24 (22-30) mmol/L BUN 9 (9-20) mg/dL Creatinine 0.9 (0.8-1.3) mg/dL Glucose 191 H (75-100) mg/dL Calcium 8.3 L (8.4-10.2) mg/dL Adrenal panel 10/07/20 Range/Units 05:01 Sodium 144 (137-145) mmol/L Potassium 3.4 L (3.6-5.0) mmol/L Chloride 108.4 H (98-107) mmol/L Carbon Dioxide 24 (22-30) mmol/L BUN 9 (9-20) mg/dL Creatinine 0.9 (0.8-1.3) mg/dL Glucose 191 H (75-100) mg/dL Calcium 8.3 L (8.4-10.2) mg/dL Total Bilirubin 5.90 H (0.1-1.2) mg/dL AST 127 H (5-40) units/L ALT 196 H (7-56) units/L Alkaline Phosphatase 139 H (35-129) units/L Total Protein 6.1 L (6.3-8.2) g/dL Albumin 3.3 L (3.9-5) g/dL
--- NOTE | 2020-10-07 17:10 | Progress Note ---
Assessment and Plan Echo reviewed - EF 50-55%, mild LVH, mild diastolic dysfxn. Pt is low-risk from a cardiac standpoint and stable to proceed with cholecystec pieter if warranted. RCRI Class is II (1 point, 6.0% risk of MACE within 30 days). Otherwise stable cardiac status. Will see peripherally over the weekend. Please do not hesitate to call if any questions or concerns regarding cardiac mgmt ([phone]). Pt seen in conjunction with Dr. Erica Navarro, who agrees with the assessment and plan of care. - Patient Problems (1) Gallstone pancreatitis Current Visit: Yes Status: Acute (2) Cardiac pacemaker in situ Current Visit: Yes Status: Chronic (3) History of complete heart block Current Visit: Yes Status: Chronic (4) Hypertension Current Visit: Yes Status: Chronic Qualifiers: Hypertension type: essential hypertension Qualified Code(s): I10 - Essential (primary) hypertension (5) DM2 (diabetes mellitus, type 2) Current Visit: Yes Status: Chronic (6) HIV infection Current Visit: Yes Status: Chronic (7) Essential tremor Current Visit: Yes Status: Chronic Subjective Date of service: 10/07/20 Principal diagnosis: Gallstone Pancreatitis Interval history: S/p ERCP this AM. Pt tolerated well. No cardiac complaints. V-paced on tele with occasional PVCs. Objective Last Vital Signs Temp 99.3 F 10/07/20 16:25 Pulse 70 10/07/20 16:25 Resp 18 10/07/20 16:25 BP 138/66 10/07/20 16:25 Pulse Ox 95 10/07/20 16:25 - Physical Examination General: No Apparent Distress HEENT: Positive: EOMI, Normocephaly, Mucus Membranes Moist Neck: Positive: neck supple, trachea midline. Negative: JVD/HJR Cardiac: Positive: Reg Rate and Rhythm, S1/S2 Lungs: Positive: clear to auscultation Neuro: Positive: Grossly Intact Abdomen: Positive: Tender Skin: Negative: Rash Musculoskeletal: No Pain Extremities: Present: lower extr. pulses, warm. Absent: edema - Labs and Meds Cardiac Enzymes 10/07/20 Range/Units 05:01 AST 127 H (5-40) units/L CBC 10/07/20 Range/Units 05:01 WBC 8.5 (4.5-11.0) K/mm3 RBC 3.66 (3.65-5.03) M/mm3 Hgb 12.8 (11.8-15.2) gm/dl Hct 35.6 (35.5-45.6) % Plt Count 103 L (140-440) K/mm3 Lymph # (Auto) 1.3 (1.2-5.4) K/mm3 [place] # (Auto) 0.5 (0.0-0.8) K/mm3 Eos # (Auto) 0.0 (0.0-0.4) K/mm3 Baso # (Auto) 0.1 (0.0-0.1) K/mm3 Comprehensive Metabolic Panel 10/07/20 Range/Units 05:01 Sodium 144 (137-145) mmol/L Potassium 3.4 L (3.6-5.0) mmol/L Chloride 108.4 H (98-107) mmol/L Carbon Dioxide 24 (22-30) mmol/L BUN 9 (9-20) mg/dL Creatinine 0.9 (0.8-1.3) mg/dL Glucose 191 H (75-100) mg/dL Calcium 8.3 L (8.4-10.2) mg/dL AST 127 H (5-40) units/L ALT 196 H (7-56) units/L Alkaline Phosphatase 139 H (35-129) units/L Total Protein 6.1 L (6.3-8.2) g/dL Albumin 3.3 L (3.9-5) g/dL - Imaging and Cardiology EKG: report reviewed, image reviewed Echo: report reviewed (10/07/2020 - EF 50-55%, mild LVH, mild diastolic dysfxn), other (06/2014 - EF 60%, mildly dilated LA, moderate MR, dilated IVC, moderate diastolic dysfxn) - Telemetry EKG Rhythm: Paced - EKG Sinus rhythms and dysrhythmias: sinus rhythm Pacemaker: normal AV synchronous pac
[2020-10-08] MEDS ORDERED: HYPROMELLOSE 0.5% OPHTH SOLN 15 ML OU PRN (01:07)
[2020-10-08 05:20] LABS: Basophils % (Auto) 0.4 % (0.0-1.8); Eosinophils # (Auto) 0.2 K/mm3 (0.0-0.4); Eosinophils % (Auto) 3.2 % (0.0-4.3); Hematocrit 34.2 % (35.5-45.6); Hemoglobin 12.2 gm/dl (11.8-15.2); Lymphocytes # (Auto) 1.2 K/mm3 (1.2-5.4); Mean Corpuscular HGB Conc 36 % (32-34); Mean Corpuscular Volume 99 fl (84-94); Monocytes # (Auto) 0.5 K/mm3 (0.0-0.8); Monocytes % (Auto) 7.8 % (0.0-7.3); Red Blood Count 3.45 M/mm3 (3.65-5.03); Red Cell Distribution Width 13.6 % (13.2-15.2)
[2020-10-08] MEDS: PIPERACIL/TAZOBACTA 4.5/NS 100 4.5 GM/100 ML VIAL IV SCH ×3 (05:23→21:17)
[2020-10-08 05:41] LABS: Platelet Count 91 K/mm3 (140-440)
[2020-10-08 05:44] LABS: Alanine Aminotransferase 144 units/L (7-56); Albumin 2.8 g/dL (3.9-5); BUN/Creatinine Ratio 11; Bilirubin,Direct 4.8 mg/dL (0-0.2); Blood Urea Nitrogen 11 mg/dL (9-20); Hemolysis Index 2
--- NOTE | 2020-10-08 09:11 | Progress Note ---
Assessment and Plan Assessment and plan: Acute pancreatitis Abdominal pain Sick sinus syndrome s/p pacemaker placement History of HIV 10/05/2020. On admission, lipase noted to be 3256. Continue IV fluid hydration, pain management and GI consultation pending. CT scan reveals distended gallbladder with cholelithiasis. Mild inflammation surrounding the pancreatic body and head with trace fluid. Await surgery evaluation for gallstone smalls creatitis. 10/06/2020. Continue n.p.o. status per surgery recommendations. Lipase improved to 998. LFTs slightly more elevated. Await GI evaluation. Consider MRCP. Cholecystectomy per surgery recommendations. Cardiology preop risk assessment. 10/07/2020. Continue IV antibiotics of Zosyn. Lipase has improved significantly to 136. However, bilirubin increasing and remains high at 5.9. GI to perform ERCP today. Cardiology consult for preop risk assessment. Echocardiogram reveals EF of 55% with no significant findings. Patient deemed low risk from a cardiac standpoint. Cholecystectomy per surgery after ERCP. 10/08/2020. Continue to monitor bilirubin per surgery/GI recommendations. Bilirubin continues to trend up, will transfer to facility with advanced endoscopic techniques - [facility] vs [place]. Continue antibiotic of Zosyn. Continue to monitor CMP and lipase. Clear liquid diet per surgery recommendations. History Interval history: No new issues overnight Hospitalist Physical - Constitutional Vitals: Temp Pulse Resp BP Pulse Ox 98.2 F 60 16 149/67 96 10/08/20 08:11 10/08/20 08:11 10/08/20 08:11 10/08/20 08:11 10/08/20 08:11 General appearance: Present: no acute distress - EENT Eyes: Present: PERRL, EOM intact ENT: hearing intact, clear oral mucosa, dentition normal - Neck Neck: Present: supple, normal ROM - Respiratory Respiratory effort: normal Respiratory: bilateral: CTA - Cardiovascular Rhythm: regular Heart Sounds: Present: S1 & S2. Absent: gallop, rub - Extremities Extremities: no ischemia, No edema, Full ROM - Abdominal General gastrointestinal: soft, non-tender, non-distended, normal bowel sounds - Integumentary Integumentary: Present: clear, warm, dry - Neurologic Neurologic: CNII-XII intact, moves all extremities Results - Labs CBC & Chem 7: 10/08/20 04:43 10/08/20 04:43 Labs: Laboratory Last Values WBC 6.4 K/mm3 (4.5-11.0) 10/08/20 04:43 RBC 3.45 M/mm3 (3.65-5.03) L 10/08/20 04:43 Hgb 12.2 gm/dl (11.8-15.2) 10/08/20 04:43 Hct 34.2 % (35.5-45.6) L 10/08/20 04:43 MCV 99 fl (84-94) H 10/08/20 04:43 MCH 35 pg (28-32) H 10/08/20 04:43 MCHC 36 % (32-34) H 10/08/20 04:43 RDW 13.6 % (13.2-15.2) 10/08/20 04:43 Plt Count 91 K/mm3 (140-440) L 10/08/20 04:43 Lymph % (Auto) 19.0 % (13.4-35.0) 10/08/20 04:43 [place] % (Auto) 7.8 % (0.0-7.3) H 10/08/20 04:43 Eos % (Auto) 3.2 % (0.0-4.3) 10/08/20 04:43 Baso % (Auto) 0.4 % (0.0-1.8) 10/08/20 04:43 Lymph # (Auto) 1.2 K/mm3 (1.2-5.4) 10/08/20 04:43 [place] # (Auto) 0.5 K/mm3 (0.0-0.8) 10/08/20 04:43 Eos # (Auto) 0.2 K/mm3 (0.0-0.4) 10/08/20 04:43 Baso # (Auto) 0.0 K/mm3 (0.0-0.1) 10/08/20 04:43 Seg Neutrophils % 69.6 % (40.0-70.0) 10/08/20 04:43 Seg Neutrophils # 4.5 K/mm3 (1.8-7.7) 10/08/20 04:43 PT 14.1 Sec. (12.2-14.9) 10/05/20 02:06 INR 1.04 (0.87-1.13) 10/05/20 02:06 APTT 28.3 Sec. (24.2-36.6) 10/05/20 02:06 Sodium 139 mmol/L (137-145) 10/08/20 04:43 Potassium 3.4 mmol/L (3.6-5.0) L 10/08/20 04:43 Chloride 105.2 mmol/L (98-107) 10/08/20 04:43 Carbon Dioxide 24 mmol/L (22-30) 10/08/20 04:43 Anion Gap 13 mmol/L 10/08/20 04:43 BUN 11 mg/dL (9-20) 10/08/20 04:43 Creatinine 1.0 mg/dL (0.8-1.3) 10/08/20 04:43 Estimated GFR > 60 ml/min 10/08/20 04:43 BUN/Creatinine Ratio 11 % 10/08/20 04:43 Glucose 168 mg/dL (75-100) H 10/08/20 04:43 POC Glucose 174 mg/dL (70-105) H 10/07/20 16:23 Hemoglobin A1c 6.7 % (4-6) H 10/05/20 11:58 Lactic Acid 1.10 mmol/L (0.7-2.0) 10/05/20 11:58 Calcium 8.0 mg/dL (8.4-10.2) L 10/08/20 04:43 Total Bilirubin 5.30 mg/dL (0.1-1.2) H 10/08/20 04:43 Direct Bilirubin 4.8 mg/dL (0-0.2) H 10/08/20 04:43 Indirect Bilirubin 0.5 mg/dL 10/08/20 04:43 AST 86 units/L (5-40) H 10/08/20 04:43 ALT 144 units/L (7-56) H 10/08/20 04:43 Alkaline Phosphatase 110 units/L (35-129) 10/08/20 04:43 Total Protein 5.7 g/dL (6.3-8.2) L 10/08/20 04:43 Albumin 2.8 g/dL (3.9-5) L 10/08/20 04:43 Albumin/Globulin Ratio 1.0 % 10/08/20 04:43 Lipase 124 units/L (13-60) H 10/08/20 04:43 Urine Color Yellow (Yellow) 10/05/20 02:06 Urine Turbidity Clear (Clear) 10/05/20 02:06 Urine pH 6.0 (5.0-7.0) 10/05/20 02:06 Ur Specific [place] 1.009 (1.003-1.030) 10/05/20 02:06 Urine Protein 30 mg/dl mg/dL (Negative) 10/05/20 02:06 Urine Glucose (UA) 50 mg/dL (Negative) 10/05/20 02:06 Urine Ketones Trace mg/dL (Negative) 10/05/20 02:06 Urine Blood Small (Negative) A 10/05/20 02:06 Urine Nitrite Negative (Negative) 10/05/20 02:06 Urine Bilirubin Negative (Negative) 10/05/20 02:06 Urine Urobilinogen < 2.0 mg/dL (<2.0) 10/05/20 02:06 Ur Leukocyte Esterase Negative (Negative) 10/05/20 02:06 Urine WBC (Auto) < 1.0 /HPF (0.0-6.0) 10/05/20 02:06 Urine RBC (Auto) 1.0 /HPF (0.0-6.0) 10/05/20 02:06 U Epithel Cells (Auto) < 1.0 /HPF (0-13.0) 10/05/20 02:06 Microbiology: Microbiology 10/06/20 08:39 Peripheral/Venous Blood Culture - Preliminary NO GROWTH AFTER 48 HOURS 10/05/20 11:58 Peripheral/Venous Blood Culture - Preliminary NO GROWTH AFTER 48 HOURS [place]/IV: Voiding Method Condom Catheter Active Medications - Current Medications Current Medications: Generic Name Dose Route Start Last Admin Trade Name Freq PRN Reason Stop Dose Admin Acetaminophen 650 mg 10/05/20 05:13 10/06/20 11:50 Acetaminophen 325 Mg Tab PO 650 mg Q4H PRN Administration Pain MILD(1-3)/Fever >100.5/PEÑA Al Hydrox/Mg Hydrox/Simethicone 30 ml 10/05/20 05:13 Alum-Mag Hydroxide-Simethicone [phone]/5ml Oral Liqd 30 Ml PO Q4H PRN Indigestion Artificial Tears 2 drops 10/08/20 01:07 10/08/20 01:33 Hypromellose 0.5% Ophth Soln 15 Ml OU 2 drops Q4H PRN Administration Dry Eye(s) Enoxaparin Sodium 40 mg 10/05/20 10:00 10/07/20 11:18 Enoxaparin 40 Mg/0.4 Ml Inj SUB-Q 40 mg QDAY@1000 ISIS Administration Protocol Hydralazine HCl 10 mg 10/05/20 05:42 10/07/20 09:57 Hydralazine 20 Mg/1 Ml Inj IV 10 mg Q4H PRN Administration Hypertension Piperacillin Sod/Tazobactam Sod 4.5 gm in 100 mls @ 200 mls/hr 10/06/20 14:00 10/08/20 05:23 Zosyn/Ns 4.5gm/100ml IV 200 mls/hr Q8HR ISIS Administration Protocol Sodium Chloride 1,000 mls @ 50 mls/hr 10/07/20 07:00 10/08/20 01:42 Nacl 0.9% 1000 Ml IV 50 mls/hr DIRECT ISIS Administration Insulin Human Regular 0 units 10/06/20 11:30 10/07/20 23:00 Insulin Regular, Human 100 Units/1 Ml SUB-Q Not Given ACHS ISIS Protocol Magnesium Hydroxide 30 ml 10/05/20 05:13 10/06/20 15:57 Magnesium Hydroxide (Mom) Oral Liqd Udc PO 30 ml Q4H PRN Administration Constipation Metoclopramide HCl 10 mg 10/05/20 05:13 10/05/20 16:12 Metoclopramide 10 Mg/2 Ml Inj IV 10 mg Q6H PRN Administration Nausea And Vomiting Morphine Sulfate 2 mg 10/05/20 08:00 10/06/20 10:11 Morphine 2 Mg/1 Ml Inj IV 2 mg Q4H PRN Administration Pain , Severe (7-10) Ondansetron HCl 4 mg 10/05/20 05:13 10/05/20 09:32 Ondansetron 4 Mg/2 Ml Inj IV 4 mg Q8H PRN Administration Nausea And Vomiting Sodium Chloride 10 ml 10/05/20 05:13 Sodium Chloride 0.9% 10 Ml Flush Syringe IV PRN PRN LINE FLUSH Tramadol HCl 50 mg 10/05/20 05:16 Tramadol 50 Mg Tab PO Q6H PRN Pain, Moderate (4-6) Trazodone HCl 50 mg 10/05/20 22:00 Trazodone 50 Mg Tab PO QHS PRN Insomnia
[2020-10-08] MEDS: INSULIN REGULAR, HUMAN 100 UNITS/1 ML SUB-Q SCH ×4 (10:03→21:17)
[2020-10-08] MEDS: ENOXAPARIN 40 MG/0.4 ML INJ SUB-Q SCH (10:03)
[2020-10-08] MEDS ORDERED: [UNRECOGNIZED DRUG - OTHER] OS SCH (12:00)
[2020-10-08] MEDS ORDERED: PREDNISOLONE ACETATE 1% OS SCH (12:00)
[2020-10-08] MEDS ORDERED: MOXIFLOXACIN OU SCH (12:00)
[2020-10-08] MEDS: TAMSULOSIN 0.4 MG CAP PO SCH (12:25)
[2020-10-08] MEDS: HYPROMELLOSE 0.5% OPHTH SOLN 15 ML OS SCH ×2 (12:35→18:15)
[2020-10-08] MEDS: MOXIFLOXACIN 0.5% OPHTH SOLN 3ML OU SCH ×2 (13:50→18:15)
[2020-10-08] MEDS: prednisoLONE ACETATE 1% OPHTH SUSP 5 ML OS SCH ×2 (13:50→18:16)
--- NOTE | 2020-10-08 16:31 | Progress Note ---
Assessment and Plan 75 yo M with gallstone pancreatitis Patient stable. Tolerating diet, afebrile. Pain is resolved. ERCP attempted however common bile duct could not be cannulated. Plan: 1. adv to FLD 2. IVF 3. prn pain and nausea control 4. DVT and GI ppx 5. abx -Zosyn 6. daily CMP and lipase - LFTs, lipase trending down but Bilirubin still elevated 7. GI on board -Recommend transfer to facility with advanced endoscopic techniques - Pt prefers [facility] as first choice. 8. Patient will require CCY but this is not urgent. Choledocolithiasis should be addressed first. Plan discussed with patient and questions answered. Discussed with Dr. Maza. Thank you. Please call with any questions or concerns. Evaluation and treatment of this patient was during the time of the national and state emergency arising from COVID19 coronavirus pandemic. Treatment and procedures performed meet the current and available best practice and guidelines for patient during the COVID pandemic. Subjective Date of service: 10/08/20 Narrative: Pt seen and examined. No acute complaints. Bart diet. No n/v. No abd pain. tm: 100 Objective Vital Signs - 12hr 10/08/20 10/08/20 10/08/20 04:33 08:11 11:27 Temperature 98.0 F 98.2 F 98.5 F Pulse Rate 63 60 61 Respiratory 18 16 18 Rate Blood Pressure 155/68 149/67 153/72 O2 Sat by Pulse 94 96 97 Oximetry 10/08/20 11:34 Temperature Pulse Rate Respiratory 18 Rate Blood Pressure O2 Sat by Pulse Oximetry - General physical appearance Narrative Exam: Gen: AAox3. NAD ENT: mild scleral icterus CV: s1, S2+ Resp: even and unlabored Abd: soft Ext: no c/c/e : [place] cath with dark urine - Labs 10/08/20 04:43 10/08/20 04:43 Diabetes panel 10/08/20 Range/Units 04:43 Sodium 139 (137-145) mmol/L Potassium 3.4 L (3.6-5.0) mmol/L Chloride 105.2 (98-107) mmol/L Carbon Dioxide 24 (22-30) mmol/L BUN 11 (9-20) mg/dL Creatinine 1.0 (0.8-1.3) mg/dL Glucose 168 H (75-100) mg/dL Calcium 8.0 L (8.4-10.2) mg/dL AST 86 H (5-40) units/L ALT 144 H (7-56) units/L Alkaline Phosphatase 110 (35-129) units/L Total Protein 5.7 L (6.3-8.2) g/dL Albumin 2.8 L (3.9-5) g/dL Calcium panel 10/08/20 Range/Units 04:43 Calcium 8.0 L (8.4-10.2) mg/dL Albumin 2.8 L (3.9-5) g/dL Pituitary panel 10/08/20 Range/Units 04:43 Sodium 139 (137-145) mmol/L Potassium 3.4 L (3.6-5.0) mmol/L Chloride 105.2 (98-107) mmol/L Carbon Dioxide 24 (22-30) mmol/L BUN 11 (9-20) mg/dL Creatinine 1.0 (0.8-1.3) mg/dL Glucose 168 H (75-100) mg/dL Calcium 8.0 L (8.4-10.2) mg/dL Adrenal panel 10/08/20 Range/Units 04:43 Sodium 139 (137-145) mmol/L Potassium 3.4 L (3.6-5.0) mmol/L Chloride 105.2 (98-107) mmol/L Carbon Dioxide 24 (22-30) mmol/L BUN 11 (9-20) mg/dL Creatinine 1.0 (0.8-1.3) mg/dL Glucose 168 H (75-100) mg/dL Calcium 8.0 L (8.4-10.2) mg/dL Total Bilirubin 5.30 H (0.1-1.2) mg/dL AST 86 H (5-40) units/L ALT 144 H (7-56) units/L Alkaline Phosphatase 110 (35-129) units/L Total Protein 5.7 L (6.3-8.2) g/dL Albumin 2.8 L (3.9-5) g/dL
--- NOTE | 2020-10-08 18:30 | Gastroenterology Progress Note ---
Assessment and Plan # Gallstone pancreatitis - epigastric pain x 1 day - Ct showing cholelithiasis and pancreatitis - US showing mild prominent bile duct - LFTs elevated with Tbili, ALT, and Alk phos trending down slightly - MRCP ordered but cannot be done due to pacemaker. - surgery consulted. - s/p ERCP: flat ampulla, pancreatic duct is normal in course and caliber. guidewire was unable to be passed across the ampulla into any of the ductal orifices. A 0.035 inch guidewire was switched to a 0.025 inch guidewire. Precut papillotomy was performed. The tip was unable to go freely into the pancreatic duct and pancreatic sphincter was very stenotic. Multiple attemps were made to find the biliary orifice, which were unsuccessful - clinically stable with abdominal pain improving. LFTs trending down. Lipase trending down. Rec - medical management for pancreatitis with IVF and pain control - continue with empiric antibiotics, currently on zosyn - monitor LFTs - options are to proceed with CCY with IOC vs transfer to a tertiary center for EUS guided rendezvous procedure vs PTC. - discussed with surgery. - Patient Problems (1) Acute pancreatitis Current Visit: Yes Status: Acute Subjective Date of service: 10/08/20 Principal diagnosis: Gallstone Pancreatitis Interval history: Patient feeling better. No acute events. No nausea/vomiting. Abdominal pain improving. Objective - Constitutional Vitals: Temp Pulse Resp BP Pulse Ox 98.5 F 61 18 153/72 97 10/08/20 11:27 10/08/20 11:27 10/08/20 11:34 10/08/20 11:27 10/08/20 11:27 General appearance: no acute distress - EENT Eyes: EOM intact ENT: hearing intact - Respiratory Respiratory effort: normal - Cardiovascular Rhythm: regular Heart Sounds: Present: S1 & S2 - Gastrointestinal General gastrointestinal: Present: soft, non-tender, non-distended, normal bowel sounds - Integumentary Integumentary: Present: clear - Neurologic Neurological: alert and oriented x3 - Labs CBC & Chem 7: 10/08/20 04:43 10/08/20 04:43 Labs: Laboratory Results - last 24 hr 10/08/20 10/08/20 10/08/20 04:43 04:43 11:24 WBC 6.4 RBC 3.45 L Hgb 12.2 Hct 34.2 L MCV 99 H MCH 35 H MCHC 36 H RDW 13.6 Plt Count 91 L Lymph % (Auto) 19.0 [place] % (Auto) 7.8 H Eos % (Auto) 3.2 Baso % (Auto) 0.4 Lymph # (Auto) 1.2 [place] # (Auto) 0.5 Eos # (Auto) 0.2 Baso # (Auto) 0.0 Seg Neutrophils % 69.6 Seg Neutrophils # 4.5 Sodium 139 Potassium 3.4 L Chloride 105.2 Carbon Dioxide 24 Anion Gap 13 BUN 11 Creatinine 1.0 Estimated GFR > 60 BUN/Creatinine Ratio 11 Glucose 168 H POC Glucose 190 H Calcium 8.0 L Total Bilirubin 5.30 H Direct Bilirubin 4.8 H Indirect Bilirubin 0.5 AST 86 H ALT 144 H Alkaline Phosphatase 110 Total Protein 5.7 L Albumin 2.8 L Albumin/Globulin Ratio 1.0 Lipase 124 H 10/08/20 16:32 WBC RBC Hgb Hct MCV MCH MCHC RDW Plt Count Lymph % (Auto) [place] % (Auto) Eos % (Auto) Baso % (Auto) Lymph # (Auto) [place] # (Auto) Eos # (Auto) Baso # (Auto) Seg Neutrophils % Seg Neutrophils # Sodium Potassium Chloride Carbon Dioxide Anion Gap BUN Creatinine Estimated GFR BUN/Creatinine Ratio Glucose POC Glucose 160 H Calcium Total Bilirubin Direct Bilirubin Indirect Bilirubin AST ALT Alkaline Phosphatase Total Protein Albumin Albumin/Globulin Ratio Lipase
[2020-10-08] MEDS: NACL 0.45%/KCL 20 MEQ 20 MEQ/1,000 ML BAG IV SCH (18:58)
[2020-10-08] MEDS: FINASTERIDE 5 MG TAB PO SCH (21:17)
[2020-10-08] MEDS: SERTRALINE 50 MG TAB PO SCH (21:17)
[2020-10-08] MEDS: glipiZIDE 10 MG TAB PO SCH (21:17)
[2020-10-08] MEDS: PRIMIDONE 50 MG TAB PO SCH (21:17)
[2020-10-08] MEDS ORDERED: NON-FORMULARY EACH (Finasteride 5 MG) PO SCH (22:00)
[2020-10-08] MEDS ORDERED: SERTRALINE HCL 50 MG PO SCH (22:00)
[2020-10-09] MEDS: MOXIFLOXACIN 0.5% OPHTH SOLN 3ML OU SCH ×4 (05:39→17:50)
[2020-10-09] MEDS: HYPROMELLOSE 0.5% OPHTH SOLN 15 ML OS SCH ×4 (05:39→17:50)
[2020-10-09] MEDS: prednisoLONE ACETATE 1% OPHTH SUSP 5 ML OS SCH ×4 (05:40→17:50)
[2020-10-09] MEDS: PIPERACIL/TAZOBACTA 4.5/NS 100 4.5 GM/100 ML VIAL IV SCH ×3 (06:14→22:27)
--- NOTE | 2020-10-09 09:11 | Progress Note ---
Assessment and Plan Assessment and plan: Acute pancreatitis Abdominal pain Sick sinus syndrome s/p pacemaker placement History of HIV 10/05/2020. On admission, lipase noted to be 3256. Continue IV fluid hydration, pain management and GI consultation pending. CT scan reveals distended gallbladder with cholelithiasis. Mild inflammation surrounding the pancreatic body and head with trace fluid. Await surgery evaluation for gallstone smalls creatitis. 10/06/2020. Continue n.p.o. status per surgery recommendations. Lipase improved to 998. LFTs slightly more elevated. Await GI evaluation. Consider MRCP. Cholecystectomy per surgery recommendations. Cardiology preop risk assessment. 10/07/2020. Continue IV antibiotics of Zosyn. Lipase has improved significantly to 136. However, bilirubin increasing and remains high at 5.9. GI to perform ERCP today. Cardiology consult for preop risk assessment. Echocardiogram reveals EF of 55% with no significant findings. Patient deemed low risk from a cardiac standpoint. Cholecystectomy per surgery after ERCP. 10/08/2020. Continue to monitor bilirubin per surgery/GI recommendations. Bilirubin continues to trend up, will transfer to facility with advanced endoscopic techniques - [facility] vs [place]. Continue antibiotic of Zosyn. Continue to monitor CMP and lipase. Clear liquid diet per surgery recommendations. 10/09/2020. Continue to monitor bilirubin per surgery/GI recommendations. [place] transfer center to speak with Dr. Brand to determine specifications for advanced endoscopic techniques needed. Continue antibiotics of Zosyn. Continue to monitor CMP and lipase. Clear liquid diet per surgery recommendations. History Interval history: No new issues overnight Hospitalist Physical - Constitutional Vitals: Temp Pulse Resp BP Pulse Ox 98.5 F 68 19 172/74 96 10/09/20 08:07 10/09/20 08:07 10/09/20 08:07 10/09/20 08:07 10/09/20 08:07 General appearance: Present: no acute distress - EENT Eyes: Present: PERRL, EOM intact ENT: hearing intact, clear oral mucosa, dentition normal - Neck Neck: Present: supple, normal ROM - Respiratory Respiratory effort: normal Respiratory: bilateral: CTA - Cardiovascular Rhythm: regular Heart Sounds: Present: S1 & S2. Absent: gallop, rub - Extremities Extremities: no ischemia, No edema, Full ROM - Abdominal General gastrointestinal: soft, non-tender, non-distended, normal bowel sounds - Integumentary Integumentary: Present: clear, warm, dry - Neurologic Neurologic: CNII-XII intact, moves all extremities Results - Labs CBC & Chem 7: 10/08/20 04:43 10/08/20 04:43 Labs: Laboratory Last Values WBC 6.4 K/mm3 (4.5-11.0) 10/08/20 04:43 RBC 3.45 M/mm3 (3.65-5.03) L 10/08/20 04:43 Hgb 12.2 gm/dl (11.8-15.2) 10/08/20 04:43 Hct 34.2 % (35.5-45.6) L 10/08/20 04:43 MCV 99 fl (84-94) H 10/08/20 04:43 MCH 35 pg (28-32) H 10/08/20 04:43 MCHC 36 % (32-34) H 10/08/20 04:43 RDW 13.6 % (13.2-15.2) 10/08/20 04:43 Plt Count 91 K/mm3 (140-440) L 10/08/20 04:43 Lymph % (Auto) 19.0 % (13.4-35.0) 10/08/20 04:43 [place] % (Auto) 7.8 % (0.0-7.3) H 10/08/20 04:43 Eos % (Auto) 3.2 % (0.0-4.3) 10/08/20 04:43 Baso % (Auto) 0.4 % (0.0-1.8) 10/08/20 04:43 Lymph # (Auto) 1.2 K/mm3 (1.2-5.4) 10/08/20 04:43 [place] # (Auto) 0.5 K/mm3 (0.0-0.8) 10/08/20 04:43 Eos # (Auto) 0.2 K/mm3 (0.0-0.4) 10/08/20 04:43 Baso # (Auto) 0.0 K/mm3 (0.0-0.1) 10/08/20 04:43 Seg Neutrophils % 69.6 % (40.0-70.0) 10/08/20 04:43 Seg Neutrophils # 4.5 K/mm3 (1.8-7.7) 10/08/20 04:43 PT 14.1 Sec. (12.2-14.9) 10/05/20 02:06 INR 1.04 (0.87-1.13) 10/05/20 02:06 APTT 28.3 Sec. (24.2-36.6) 10/05/20 02:06 Sodium 139 mmol/L (137-145) 10/08/20 04:43 Potassium 3.4 mmol/L (3.6-5.0) L 10/08/20 04:43 Chloride 105.2 mmol/L (98-107) 10/08/20 04:43 Carbon Dioxide 24 mmol/L (22-30) 10/08/20 04:43 Anion Gap 13 mmol/L 10/08/20 04:43 BUN 11 mg/dL (9-20) 10/08/20 04:43 Creatinine 1.0 mg/dL (0.8-1.3) 10/08/20 04:43 Estimated GFR > 60 ml/min 10/08/20 04:43 BUN/Creatinine Ratio 11 % 10/08/20 04:43 Glucose 168 mg/dL (75-100) H 10/08/20 04:43 POC Glucose 199 mg/dL (70-105) H 10/09/20 08:07 Hemoglobin A1c 6.7 % (4-6) H 10/05/20 11:58 Lactic Acid 1.10 mmol/L (0.7-2.0) 10/05/20 11:58 Calcium 8.0 mg/dL (8.4-10.2) L 10/08/20 04:43 Total Bilirubin 5.30 mg/dL (0.1-1.2) H 10/08/20 04:43 Direct Bilirubin 4.8 mg/dL (0-0.2) H 10/08/20 04:43 Indirect Bilirubin 0.5 mg/dL 10/08/20 04:43 AST 86 units/L (5-40) H 10/08/20 04:43 ALT 144 units/L (7-56) H 10/08/20 04:43 Alkaline Phosphatase 110 units/L (35-129) 10/08/20 04:43 Total Protein 5.7 g/dL (6.3-8.2) L 10/08/20 04:43 Albumin 2.8 g/dL (3.9-5) L 10/08/20 04:43 Albumin/Globulin Ratio 1.0 % 10/08/20 04:43 Lipase 80 units/L (13-60) H 10/09/20 04:47 Urine Color Yellow (Yellow) 10/05/20 02:06 Urine Turbidity Clear (Clear) 10/05/20 02:06 Urine pH 6.0 (5.0-7.0) 10/05/20 02:06 Ur Specific [place] 1.009 (1.003-1.030) 10/05/20 02:06 Urine Protein 30 mg/dl mg/dL (Negative) 10/05/20 02:06 Urine Glucose (UA) 50 mg/dL (Negative) 10/05/20 02:06 Urine Ketones Trace mg/dL (Negative) 10/05/20 02:06 Urine Blood Small (Negative) A 10/05/20 02:06 Urine Nitrite Negative (Negative) 10/05/20 02:06 Urine Bilirubin Negative (Negative) 10/05/20 02:06 Urine Urobilinogen < 2.0 mg/dL (<2.0) 10/05/20 02:06 Ur Leukocyte Esterase Negative (Negative) 10/05/20 02:06 Urine WBC (Auto) < 1.0 /HPF (0.0-6.0) 10/05/20 02:06 Urine RBC (Auto) 1.0 /HPF (0.0-6.0) 10/05/20 02:06 U Epithel Cells (Auto) < 1.0 /HPF (0-13.0) 10/05/20 02:06 Microbiology: Microbiology 10/06/20 08:39 Peripheral/Venous Blood Culture - Preliminary NO GROWTH AFTER 72 HOURS 10/05/20 11:58 Peripheral/Venous Blood Culture - Preliminary NO GROWTH AFTER 72 HOURS [place]/IV: Voiding Method Condom Catheter Active Medications - Current Medications Current Medications: Generic Name Dose Route Start Last Admin Trade Name Freq PRN Reason Stop Dose Admin Acetaminophen 650 mg 10/05/20 05:13 10/06/20 11:50 Acetaminophen 325 Mg Tab PO 650 mg Q4H PRN Administration Pain MILD(1-3)/Fever >100.5/PEÑA Al Hydrox/Mg Hydrox/Simethicone 30 ml 10/05/20 05:13 Alum-Mag Hydroxide-Simethicone [id number]/5ml Oral Liqd 30 Ml PO Q4H PRN Indigestion Artificial Tears 2 drops 10/08/20 01:07 10/08/20 01:33 Hypromellose 0.5% Ophth Soln 15 Ml OU 2 drops Q4H PRN Administration Dry Eye(s) Artificial Tears 1 drops 10/08/20 12:00 10/09/20 06:14 Hypromellose 0.5% Ophth Soln 15 Ml OS 1 drops Q6HR ISIS Administration Cyanocobalamin 1,000 mcg 10/09/20 10:00 Cyanocobalamin (Vit B-12) 1000 Mcg Tab PO DAILY ISIS Enoxaparin Sodium 40 mg 10/05/20 10:00 10/08/20 10:03 Enoxaparin 40 Mg/0.4 Ml Inj SUB-Q 40 mg QDAY@1000 ISIS Administration Protocol Finasteride 5 mg 10/08/20 22:00 10/08/20 21:17 Finasteride 5 Mg Tab PO 5 mg QHS ISIS Administration Glipizide 10 mg 10/08/20 22:00 10/08/20 21:17 Glipizide 10 Mg Tab PO 10 mg HS ISIS Administration Hydralazine HCl 10 mg 10/05/20 05:42 10/07/20 09:57 Hydralazine 20 Mg/1 Ml Inj IV 10 mg Q4H PRN Administration Hypertension Piperacillin Sod/Tazobactam Sod 4.5 gm in 100 mls @ 200 mls/hr 10/06/20 14:00 10/09/20 06:14 Zosyn/Ns 4.5gm/100ml IV 200 mls/hr Q8HR ISIS Administration Protocol Potassium Chloride/Sodium Chloride 20 meq in 1,000 mls @ 75 mls/hr 10/08/20 17:00 10/08/20 18:58 Ns 0.45/Kcl 20meq IV 75 mls/hr DIRECT ISIS Administration Insulin Human Regular 0 units 10/06/20 11:30 10/08/20 21:17 Insulin Regular, Human 100 Units/1 Ml SUB-Q 3 units ACHS ISIS Administration Protocol Magnesium Hydroxide 30 ml 10/05/20 05:13 10/06/20 15:57 Magnesium Hydroxide (Mom) Oral Liqd Udc PO 30 ml Q4H PRN Administration Constipation Metoclopramide HCl 10 mg 10/05/20 05:13 10/05/20 16:12 Metoclopramide 10 Mg/2 Ml Inj IV 10 mg Q6H PRN Administration Nausea And Vomiting Morphine Sulfate 2 mg 10/05/20 08:00 10/06/20 10:11 Morphine 2 Mg/1 Ml Inj IV 2 mg Q4H PRN Administration Pain , Severe (7-10) Moxifloxacin HCl 1 drops 10/08/20 12:00 10/09/20 06:15 Moxifloxacin 0.5% Ophth Soln 3ml OU 1 drops Q6HR ISIS Administration Ondansetron HCl 4 mg 10/05/20 05:13 10/05/20 09:32 Ondansetron 4 Mg/2 Ml Inj IV 4 mg Q8H PRN Administration Nausea And Vomiting Prednisolone Acetate 1 drops 10/08/20 12:00 10/09/20 06:14 Prednisolone Acetate 1% Ophth Susp 5 Ml OS 1 drops Q6HR ISIS Administration Primidone 50 mg 10/08/20 22:00 10/08/20 21:17 Primidone 50 Mg Tab PO 50 mg BID ISIS Administration Propranolol HCl 60 mg 10/09/20 10:00 Propranolol [place] 60 Mg Cap PO QDAY ISIS Sertraline HCl 50 mg 10/08/20 22:00 10/08/20 21:17 Sertraline 50 Mg Tab PO 50 mg BID ISIS Administration Sodium Chloride 10 ml 10/05/20 05:13 10/08/20 21:18 Sodium Chloride 0.9% 10 Ml Flush Syringe IV 10 ml PRN PRN Administration LINE FLUSH Tamsulosin HCl 0.4 mg 10/08/20 11:00 10/08/20 12:25 Tamsulosin 0.4 Mg Cap PO 0.4 mg QDAY ISIS Administration Tramadol HCl 50 mg 10/05/20 05:16 Tramadol 50 Mg Tab PO Q6H PRN Pain, Moderate (4-6) Trazodone HCl 50 mg 10/05/20 22:00 Trazodone 50 Mg Tab PO QHS PRN Insomnia
[2020-10-09] MEDS: INSULIN REGULAR, HUMAN 100 UNITS/1 ML SUB-Q SCH ×4 (09:49→21:45)
[2020-10-09] MEDS: TAMSULOSIN 0.4 MG CAP PO SCH (09:50)
[2020-10-09] MEDS: SERTRALINE 50 MG TAB PO SCH ×2 (09:50→22:27)
[2020-10-09] MEDS: PRIMIDONE 50 MG TAB PO SCH (09:50)
[2020-10-09] MEDS: ENOXAPARIN 40 MG/0.4 ML INJ SUB-Q SCH (09:50)
[2020-10-09] MEDS ORDERED: NON-FORMULARY EACH (Flomax 0.4 MG) PO SCH (10:00)
[2020-10-09] MEDS ORDERED: CYANOCOBALAMIN (VIT B-12) 1000 MCG TAB PO SCH (10:00)
[2020-10-09] MEDS ORDERED: PROPRANOLOL LA 60 MG CAP PO SCH (10:00)
[2020-10-09] MEDS: hydrALAZINE 20 MG/1 ML INJ IV PRN (12:55)
--- NOTE | 2020-10-09 15:07 | Progress Note ---
Assessment and Plan 75 yo M with gallstone pancreatitis Patient stable. Tolerating diet, afebrile. Pain is resolved. ERCP attempted however common bile duct could not be cannulated. Plan: 1. FLD 2. gentle IVF 3. prn pain and nausea control 4. DVT and GI ppx 5. abx -Zosyn 6. lipase continues to trend down. Bilirubin persistently elevated yesterday - no CMP done today 7. GI on board -Recommend transfer to facility with advanced endoscopic techniques - Transfer request pending per ' service and GI service. 8. Patient will require CCY but this is not urgent. Choledocolithiasis should be addressed first. Plan discussed with patient and questions answered. D/w Dr. Callaway. Thank you. Please call with any questions or concerns. Evaluation and treatment of this patient was during the time of the national and state emergency arising from COVID19 coronavirus pandemic. Treatment and procedures performed meet the current and available best practice and guidelines for patient during the COVID pandemic. Subjective Date of service: 10/09/20 Narrative: Pt seen and examined. No acute complaints. No pain. No n/v. Bart diet. Objective Vital Signs - 12hr 10/09/20 10/09/20 10/09/20 04:31 08:07 11:00 Temperature 98.5 F 98.5 F Pulse Rate 82 68 Respiratory 19 19 18 Rate Blood Pressure 183/80 172/74 O2 Sat by Pulse 92 96 96 Oximetry 10/09/20 12:45 Temperature 99.0 F Pulse Rate 67 Respiratory 18 Rate Blood Pressure 169/76 O2 Sat by Pulse 96 Oximetry - General physical appearance Narrative Exam: Gen: AAox3. NAD ENT: mild scleral icterus CV: s1, S2+ Resp: even and unlabored Abd: soft Ext: no c/c/e : [place] cath with yellow urine - Labs 10/08/20 04:43 10/08/20 04:43
--- NOTE | 2020-10-09 15:19 | Gastroenterology Progress Note ---
Assessment and Plan Patient with gallstone pancreatitis status post failed ERCP Spoke with [place] transfer Unfortunately all beds are full at both [facility] and at [facility] I will reach out to [facility] to see if they have availability - Patient Problems (1) Gallstone pancreatitis Current Visit: Yes Status: Acute Subjective Date of service: 10/09/20 Principal diagnosis: Gallstone Pancreatitis Interval history: Patient reports minimal abdominal pain. Does report mild abdominal distention otherwise feeling okay Very concerned about getting all of his management done at once because he says he cannot travel around town and has no means of transportation Objective - Constitutional Vitals: Temp Pulse Resp BP Pulse Ox 99.0 F 67 18 169/76 96 10/09/20 12:45 10/09/20 12:45 10/09/20 12:45 10/09/20 12:45 10/09/20 12:45 General appearance: no acute distress - EENT ENT: hearing intact - Respiratory Respiratory effort: normal - Cardiovascular Rhythm: regular - Gastrointestinal General gastrointestinal: Present: soft, other (Minimal tenderness to palpation right upper quadrant) - Labs CBC & Chem 7: 10/08/20 04:43 10/08/20 04:43 Labs: Laboratory Results - last 24 hr 10/08/20 10/08/20 10/09/20 16:32 21:02 04:47 POC Glucose 160 H 213 H Lipase 80 H 10/09/20 10/09/20 08:07 11:05 POC Glucose 199 H 215 H Lipase
[2020-10-09] MEDS: NACL 0.45%/KCL 20 MEQ 20 MEQ/1,000 ML BAG IV SCH (16:02)
[2020-10-09] MEDS: ONDANSETRON 4 MG/2 ML INJ IV PRN (17:46)
[2020-10-09] MEDS: ACETAMINOPHEN 325 MG TAB PO PRN (20:04)
[2020-10-09] MEDS ORDERED: PRIMIDONE 250 MG TAB PO SCH (22:00)
[2020-10-09] MEDS: FINASTERIDE 5 MG TAB PO SCH (22:27)
[2020-10-09] MEDS: glipiZIDE 10 MG TAB PO SCH (22:27)
[2020-10-09 23:44] VITALS: BP 123/64
[2020-10-10] MEDS ORDERED: PRIMIDONE 50 MG TAB PO SCH (10:00)
--- NOTE | 2020-10-10 10:59 | Discharge Summary ---
Providers - Providers Date of Admission: 10/05/20 12:54 Date of discharge: 10/10/20 Attending physician: ROSEMARIE JEROME 10/05/20 05:13 Consult to Physician [CONS] Routine Comment: Consulting Provider: [facility] Physician Instructions: Reason For Exam: acute pancreatitis 10/05/20 05:35 Consult to Physician [CONS] Urgent Comment: Consulting Provider: MARISA SCHAEFFER Physician Instructions: Reason For Exam: Gallstone pancreatitis 10/06/20 08:17 Consult to Physician [CONS] Routine Comment: Consulting Provider: SANIA MENDENHALL Physician Instructions: Reason For Exam: pre-op risk assessment Primary care physician: [employer] Hospitalization Reason for admission: Abdominal pain Condition: Serious Hospital course: 75-year-old male with a past medical history of sick sinus syndrome with pacemaker who presented to the emergency room with severe sharp epigastric abdominal pain. He has never experienced pain like this in the past. He states the pain started suddenly after eating a chicken salad sandwich and then gradually got worse. The pain then radiated down to the rest of his abdomen. The patient was admitted with diagnosis of acute gallstone pancreatitis, sick sinus syndrome s/p pacemaker placement, and history of HIV. Hospital course: 10/05/2020. On admission, lipase noted to be 3256. Continue IV fluid hydration, pain management and GI consultation pending. CT scan reveals distended gallbladder with cholelithiasis. Mild inflammation surrounding the pancreatic body and head with trace fluid. Await surgery evaluation for gallstone pancreatitis. 10/06/2020. Continue n.p.o. status per surgery recommendations. Lipase improved to 998. LFTs slightly more elevated. Await GI evaluation. Consider MRCP. Cholecystectomy per surgery recommendations. Cardiology preop risk assessment. 10/07/2020. Continue IV antibiotics of Zosyn. Lipase has improved significantly to 136. However, bilirubin increasing and remains high at 5.9. GI to perform ERCP today. Cardiology consult for preop risk assessment. Echocardiogram reveals EF of 55% with no significant findings. Patient deemed low risk from a cardiac standpoint. Cholecystectomy per surgery after ERCP. 10/08/2020. Continue to monitor bilirubin per surgery/GI recommendations. Bilirubin continues to trend up, will transfer to facility with advanced endoscopic techniques - [facility] vs [place]. Continue antibiotic of Zosyn. Continue to monitor CMP and lipase. Clear liquid diet per surgery recommendations. 10/09/2020. Continue to monitor bilirubin per surgery/GI recommendations. [place] transfer [place] to speak with Dr. Brand to determine specifications for advanced endoscopic techniques needed. Continue antibiotics of Zosyn. Continue to monitor CMP and lipase. Clear liquid diet per surgery recommendations. 10/10/2020. [facility] accepted the patient and patient was transferred this morning to their facility for further advanced ERCP endoscopic procedures. Dedicated discharge time 35 minutes. [facility] [place] IP Final Discharge Diagnosis (Prints w/discharge instructions): acute gallstone pancreatitis, sick sinus syndrome s/p pacemaker placement, and history of HIV. Core Measure Documentation - Palliative Care Palliative Care/ Comfort Measures: Not Applicable - Core Measures Any of the following diagnoses?: none Exam - Constitutional Vitals: Temp Pulse Resp BP Pulse Ox 97.4 F L 71 18 123/64 93 10/09/20 23:29 10/09/20 23:29 10/09/20 23:29 10/09/20 23:29 10/09/20 23:29 Plan Follow up with: CLYDE RICE MD [Primary Care Provider] - 3-5 Days
== END 2020-10-10 00:59 | disposition short-term general hospital (02) | DRG 439 ==
LOC: ED 03:11 → 4A 04:27 → OBSVTOIN 12:54
PROVIDERS: ADMIT Internal Medicine Geriatric Medicine; ATTEND Hospitalist
PROC: 0FJD8ZZ Inspection of Pancreatic Duct, Via Natural or Artificial Opening Endoscopic (ICD-10-PCS; principal; 2020-10-07)
PROC: BF111ZZ Fluoroscopy of Biliary and Pancreatic Ducts using Low Osmolar Contrast (ICD-10-PCS; 2020-10-07)
DX: K85.10 Biliary acute pancreatitis without necrosis or infection (principal); B20 Human immunodeficiency virus [HIV] disease; K80.71 Calculus of gallbladder and bile duct without cholecystitis with obstruction; Z95.0 Presence of cardiac pacemaker; I10 Essential (primary) hypertension; Z88.8 Allergy status to other drugs, medicaments and biological substances; Z98.42 Cataract extraction status, left eye; Z98.41 Cataract extraction status, right eye; E78.5 Hyperlipidemia, unspecified; I49.5 Sick sinus syndrome; R25.1 Tremor, unspecified; E11.9 Type 2 diabetes mellitus without complications; J45.909 Unspecified asthma, uncomplicated
CPT/HCPCS: 36415; 71045; 74177; 74330; 76705; 80048; 80053; 80076; 81001; 82140; 82248; 82962; 83036; 83690; 85025; 85610; 85730; 87040; 93005; 93306; G0378; C1726; C1769; J0360; J1170; J1610; J1650; J1815; J2270; J2405; J2543; J2704; J2765; J7030; J7042; J7120; Q9967